=== PATIENT | female | born 1990 | race Caucasian/White ===

== ENCOUNTER 2021-07-24 10:46 | Outpatient (RCR) | payer OTHER, SELFPAY | END 2021-08-21 11:42 | disposition home or self-care (01) | LOC: ANHDMC 10:46 | PROVIDERS: Visit Provider Obstetrics & Gynecology | DX: O24.319 Unspecified pre-existing diabetes mellitus in pregnancy, unspecified trimester (principal); Z71.89 Other specified counseling; Z3A.00 Weeks of gestation of pregnancy not specified | CPT/HCPCS: 99199; G0108 ==

== ENCOUNTER 2021-07-25 06:37 | Emergency (ER) | payer OTHER, MEDICAID, SELFPAY ==
[2021-07-25 06:55] VITALS: BP 146/88; PULSE 98; RESP 16; TEMP 36.6; O2SAT 98
[2021-07-25 07:09] LABS: Glucose Point of Care 109 mg/dl (65-105)
[2021-07-25] MEDS: SODIUM CHLORIDE 0.9% IV 1,000 ML 999 ML IV CONT (08:08)
[2021-07-25 08:13] LABS: Basophils Percent Auto 0.4 % (0.2-1.2); Eosinophils Absolute Auto 0.1 K/mm3 (0-0.3); Eosinophils Percent Auto 1.4 % (0-4.4); Hematocrit 35.5 % (37.0-47.0); Hemoglobin 12.1 g/dL (12.0-15.0); Immature Granulocyte Absolute 0.06 K/mm3 (0.00-0.031); Immature Granulocyte Percent A 0.6 % (0-0.5); Lymphocytes Absolute Auto 1.56 K/mm3 (0.9-3.2); Lymphocytes Percent Auto 15.6 % (18.3-44.2); Mean Corpuscular HGB Conc 34.1 g/dl (32-36); Mean Corpuscular Hemoglobin 29.5 pg (26-34); Mean Corpuscular Volume 86.6 fl (80-100); Mean Platelet Volume 9.6 fl (7.4-10.4); Monocytes Absolute Auto 0.6 K/mm3 (0.1-0.6); Monocytes Percent Auto 6.3 % (2.6-8.5); Neutrophils Absolute Auto 7.6 K/mm3 (1.3-6.7); Neutrophils Percent Auto 75.7 % (45.5-73.1); Platelet Count Result 219 k/mm3 (150-375); Red Cell Distribution Width 14.9 % (11.5-14.5)
[2021-07-25 08:31] LABS: Beta-Hydroxybutyrate/Acetoacetate 0.09 mmol/L (0.02-0.27)
[2021-07-25 08:37] LABS: Alanine Aminotransferase 24 U/L (4-35); Albumin Level 3.5 g/dL (3.5-5.1); Alkaline Phosphatase 87 U/L (38-126); Anion Gap 8 mmol/L (8-16); Aspartate Amino Transferase 28 U/L (14-36); Bilirubin,Total 0.3 mg/dL (0.2-1.3); Blood Urea Nitrogen 7 mg/dL (7-17); Calcium 8.9 mg/dL (8.4-10.2); Carbon Dioxide 20 mmol/L (22-30); Chloride 106 mmol/L (98-107); Estimated CRCL calculation 192 ml/min; Estimated Glomerular Filt Rate > 60; Glucose 98 mg/dL (65-110); Magnesium 1.9 mg/dL (1.6-2.3); Phosphorus 3.6 mg/dL (2.5-4.5); Potassium 3.4 mmol/L (3.4-5.0); Sodium 134 mmol/L (137-145)
[2021-07-25 08:39] VITALS: BP 101/61; PULSE 86; RESP 12; O2SAT 98
[2021-07-25 08:54] LABS: Add Urine Microscopic? YES; Appearance Urine Cloudy (Clear); Bacteria Urine Trace /hpf; Bilirubin Urine Negative (Negative); Blood Urine Negative (Negative); Color Urine Yellow (Yellow); Glucose Urine UA 3+ mg/dL (Negative); Ketones Urine Negative (Negative); Leukocyte Esterase Ur 2+ LEU/UL (Negative); Mucus Urine Rare /lpf; Nitrate Urine Negative (Negative); Protein Urine Negative (Negative); Squamous Epithelial Cell Urine Many /hpf (Few); Urobilinogen Urine Negative mg/dL (<2.0); WBC Urine 16-20 /hpf
--- NOTE | 2021-07-25 09:43 | ED.RECABL ---
HPI - Recheck/Abnormal Lab/Rx General Chief Complaint: Recheck/Abnormal Lab/Rx Stated Complaint: 31 weeks preg, high blood sugar Time Seen by Provider: 07/25/21 08:45 Source: patient History of Present Illness HPI narrative: Patient presents with elevated blood sugars. Patient reports she was recently diagnosed with gestational diabetes. She took her blood sugar this morning is in the 120s she ate breakfast and 45 minutes later she rechecked her blood sugar and it was 250 she called her OB clinic and was referred to the ER for evaluation. She has been peeing more frequently but otherwise feels well she is just concerned about the fluctuations in her blood sugar and was not sure what to do. Related Data Allergies Allergy/AdvReac Type Severity Reaction Status Date / Time No Known Allergies Allergy Verified 07/25/21 07:03 Review of Systems Review of Systems: CONSTITUTIONAL: Denies fever, chills, or sweats. EYES: Denies visual changes, redness, or discharge. ENT: Denies rhinorrhea, congestion, sore throat, or otalgia. CARDIOVASCULAR: Denies chest pain, palpitations, or edema. RESPIRATORY: Denies cough or dyspnea. GASTROINTESTINAL: Denies abdominal pain, nausea, vomiting, or diarrhea. GENITOURINARY: Denies dysuria or hematuria. SKIN: Denies rash or itching. MUSCULOSKELETAL: Denies back pain, joint pain, or myalgia. NEUROLOGIC: Denies headache, numbness, dizziness, or weakness. PSYCHIATRIC: Denies anxiety or depression. All systems reviewed & are unremarkable except as noted in HPI and below PMFSH Past Medical History Medical History (Updated 07/25/21 @ 09:51 by Darrius Nair MD) Gestational diabetes Social History Social History (Updated 07/25/21 @ 09:45 by Darrius Nair MD) Substance use: never Exam Narrative: GENERAL: Well-appearing, well-nourished, and in no acute distress. HEAD: Normocephalic, atraumatic. EYES: PERRLA and EOMI. ENT: Nares clear, no rhinorrhea or epistaxis. Mucous membranes moist. NECK: Supple. No masses. No JVD ABDOMEN: Gravid abdomen soft, nontender, nondistended, normal active bowel sounds. EXTREMITIES: Normal range of motion. No edema. SKIN: Warm, dry, no rash. NEURO: No focal deficits. Alert and oriented x3. PSYCH: Normal mood and affect. Course Reevaluation(s) Reevaluation #1: Patient resting comfortably results and plan reviewed with patient. Patient comfortable outpatient plan. Case discussed with patient's OB team who will follow up with the patient as an outpatient. Date: 07/25/21 Time: 09:48 Vital Signs Vital signs: Vital Signs Temperature 36.6 C 07/25/21 06:55 Pulse Rate 98 07/25/21 06:55 Respiratory Rate 16 07/25/21 06:55 Blood Pressure 146/88 H 07/25/21 06:55 Pulse Oximetry 98 07/25/21 06:55 Temperature 36.6 C 07/25/21 06:55 Pulse Rate 94 07/25/21 10:15 Respiratory Rate 12 07/25/21 10:15 Blood Pressure 111/67 07/25/21 10:15 Pulse Oximetry 97 07/25/21 10:15 MDM - Recheck/Abnormal Lab/Rx MDM Narrative Medical decision making narrative: H&P as above, vss, pt looks clinically well, exam reassuring, labs with UA concerning for infection, glucose corrected without intervention,additional labs/img considered, symptomatic relief available as needed, on reevaluation pt continues to looks clinically well. Suspect diabetes no DKA. Patient also may be developing a UTI will empirically treat with antibiotics, again low, concern for DKA, severe sepsis, severe dehydration. plan to tx/monitor as op w/ pcm f/u findings/plan discussed with pt, pt agree/comfortable with plan, return precautions given Lab Data Result diagrams: 07/25/21 08:02 07/25/21 08:02 Labs: Lab Results 07/25/21 07/25/21 07/25/21 Range/Units 07:05 08:02 08:02 WBC 10.0 (4.5-10.0) K/mm3 RBC 4.10 L (4.2-5.4) M/mm3 Hgb 12.1 (12.0-15.0) g/dL Hct 35.5 L (37.0-47.0) % MCV 86.6 (80-100) fl MCH 29.5 (26-34) pg MCHC
[2021-07-25 10:15] VITALS: BP 111/67; PULSE 94; RESP 12; O2SAT 97
== END 2021-07-25 10:20 | disposition home or self-care (01) ==
PROVIDERS: Emergency Provider Emergency Medicine; PCP Internal Medicine
DX: O24.419 Gestational diabetes mellitus in pregnancy, unspecified control (principal); O23.43 Unspecified infection of urinary tract in pregnancy, third trimester; N39.0 Urinary tract infection, site not specified; Z3A.31 31 weeks gestation of pregnancy
CPT/HCPCS: 36415; 80053; 81001; 82010; 82948; 83735; 84100; 85025; 87086; 87088; 96360; 99283; J7030

== ENCOUNTER 2021-09-10 08:51 | Outpatient (RCR) | payer OTHER, MEDICAID, SELFPAY ==
[2021-08-07 10:30] VITALS: BP 117/63; PULSE 91
[2021-08-11 16:23] VITALS: BP 105/65; PULSE 96
[2021-08-22 15:05] VITALS: BP 115/50; PULSE 81
[2021-08-28 09:30] VITALS: BP 119/69; PULSE 88
[2021-08-31 12:53] VITALS: BP 123/77; PULSE 85
[2021-09-07 12:51] VITALS: BP 110/73; PULSE 90
[2021-09-10 09:23] VITALS: BP 109/80; PULSE 79
== END 2021-09-21 21:04 | disposition home or self-care (01) ==
LOC: ANHOBOP 08:51
PROVIDERS: PCP Internal Medicine; Visit Provider Obstetrics & Gynecology
DX: O24.419 Gestational diabetes mellitus in pregnancy, unspecified control (principal); Z3A.32 32 weeks gestation of pregnancy; O99.891 Other specified diseases and conditions complicating pregnancy; X00.8XXA Other exposure to uncontrolled fire in building or structure, initial encounter; Z3A.33 33 weeks gestation of pregnancy; Z3A.34 34 weeks gestation of pregnancy; Z3A.35 35 weeks gestation of pregnancy; Z3A.36 36 weeks gestation of pregnancy; Z3A.37 37 weeks gestation of pregnancy
CPT/HCPCS: 59025

== ENCOUNTER 2021-09-11 22:30 | Inpatient (IN) | payer OTHER, MEDICAID, SELFPAY ==
[2021-09-11 07:00] VITALS: TEMP 37.1
[2021-09-12] VITALS (105 sets, daily range): BP systolic 86–139; BP diastolic 32–120; PULSE 63–104; RESP 18; TEMP 36.1–37; O2SAT 96–100; BMI 42.3
[2021-09-12 00:16] LABS: Basophils Absolute Auto 0.1 K/mm3 (0.0-0.1); Basophils Percent Auto 0.5 % (0.2-1.2); Eosinophils Absolute Auto 0.2 K/mm3 (0-0.3); Eosinophils Percent Auto 1.5 % (0-4.4); Hematocrit 39.6 % (37.0-47.0); Hemoglobin 13.5 g/dL (12.0-15.0); Immature Granulocyte Absolute 0.05 K/mm3 (0.00-0.031); Immature Granulocyte Percent A 0.5 % (0-0.5); Lymphocytes Absolute Auto 2.17 K/mm3 (0.9-3.2); Lymphocytes Percent Auto 20.6 % (18.3-44.2); Mean Corpuscular HGB Conc 34.1 g/dl (32-36); Mean Corpuscular Hemoglobin 29.5 pg (26-34); Mean Corpuscular Volume 86.7 fl (80-100); Mean Platelet Volume 10.3 fl (7.4-10.4); Monocytes Absolute Auto 0.7 K/mm3 (0.1-0.6); Monocytes Percent Auto 6.6 % (2.6-8.5); Neutrophils Absolute Auto 7.4 K/mm3 (1.3-6.7); Neutrophils Percent Auto 70.3 % (45.5-73.1); Platelet Count Result 213 k/mm3 (150-375); Red Blood Count 4.57 M/mm3 (4.2-5.4); Red Cell Distribution Width 14.7 % (11.5-14.5); White Blood Count 10.5 K/mm3 (4.5-10.0)
[2021-09-12] MEDS: AMPICILLIN 2 GM/NS 100 ML 2 GM/100 ML BAG IVPB (00:17)
[2021-09-12] MEDS: LACTATED RINGERS 1,000 ML 125 ML IV CONT ×2 (00:17→01:32)
[2021-09-12 00:23] LABS: Glucose Point of Care 119 mg/dl (65-105)
--- NOTE | 2021-09-12 00:26 | WPDANESEPPF ---
Anes - Initial Pre Proc Eval Procedure: labor epidural Date/Time: 09/12/21 00:26 Surgeon: Adiel Velez MD Pre Op Diagnosis: labor pain Pre Op Diagnosis: Leaking Patient Data Age: 31 Gender: F Height: Weight: Allergies Allergy/AdvReac Type Severity Reaction Status Date / Time No Known Allergies Allergy Verified 07/25/21 07:03 Home Medications Medication Instructions Recorded Confirmed Type PNV cmb#95-ferrous fumarate-FA 1 tablet PO DAILY 08/29/21 08/29/21 History [] Laboratory Tests 09/12/21 09/12/21 09/12/21 00:03 00:03 00:03 WBC 10.5 K/mm3 H K/mm3 (4.5-10.0) RBC 4.57 M/mm3 M/mm3 (4.2-5.4) Hgb 13.5 g/dL g/dL (12.0-15.0) Hct 39.6 % % (37.0-47.0) MCV 86.7 fl fl (80-100) MCH 29.5 pg pg (26-34) MCHC 34.1 g/dl g/dl (32-36) RDW 14.7 % H % (11.5-14.5) Plt Count 213 k/mm3 k/mm3 (150-375) MPV 10.3 fl fl (7.4-10.4) Immature Gran % (Auto) 0.5 % % (0-0.5) Neut % (Auto) 70.3 % % (45.5-73.1) Lymph % (Auto) 20.6 % % (18.3-44.2) [place] % (Auto) 6.6 % % (2.6-8.5) Eos % (Auto) 1.5 % % (0-4.4) Baso % (Auto) 0.5 % % (0.2-1.2) Lymph # (Auto) 2.17 K/mm3 K/mm3 (0.9-3.2) [place] # (Auto) 0.7 K/mm3 H K/mm3 (0.1-0.6) Eos # (Auto) 0.2 K/mm3 K/mm3 (0-0.3) Baso # (Auto) 0.1 K/mm3 K/mm3 (0.0-0.1) Abs Immat Gran (auto) 0.05 K/mm3 H K/mm3 (0.00-0.031) Absolute Neuts (auto) 7.4 K/mm3 H K/mm3 (1.3-6.7) Absolute Nucleated RBC 0.0 K/mm3 K/mm3 (0.0-0.012) Nucleated RBC % 0.0 % % (0.0-0.2) POC Capillary Glucose RPR Pending HIV 1&2 Ab/P24 Ag 4thGn Pending 09/12/21 00:10 WBC RBC Hgb Hct MCV MCH MCHC RDW Plt Count MPV Immature Gran % (Auto) Neut % (Auto) Lymph % (Auto) [place] % (Auto) Eos % (Auto) Baso % (Auto) Lymph # (Auto) [place] # (Auto) Eos # (Auto) Baso # (Auto) Abs Immat Gran (auto) Absolute Neuts (auto) Absolute Nucleated RBC Nucleated RBC % POC Capillary Glucose 119 mg/dl H mg/dl (65-105) RPR HIV 1&2 Ab/P24 Ag 4thGn Patient hx anesthesia problems: none Family hx anesthesia problems: none Results Review: All pre-operative results and documents have been reviewed as part of the pre-operative evaluation. 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 Informed Consent: The patient's anesthetic plan and its attendant risks and benefits were discussed with the patient/family/POA. Questions were solicited and answers provided to the satisfaction of the patient/family/POA.
[2021-09-12 01:04] LABS: HIV 1/2 Ab P24 Ag Result Negative (Negative)
[2021-09-12] MEDS: OXYTOCIN 30 UNITS/NS 500 ML 30 UNITS/500 ML BAG IV CONT (02:14)
[2021-09-12] MEDS: AMPICILLIN 1 GM/NS 50 ML 1 GM/50 ML BAG IVPB (04:04)
[2021-09-12 04:12] LABS: Glucose Point of Care 91 mg/dl (65-105)
--- NOTE | 2021-09-12 05:48 | WPDHPUPDATE1 ---
History and Physical Update Update Date/Time: 09/12/21 05:48 31 yo who presents at 37w5d with SROM. Her has been complicated by gestational diabetes on insulin. She denies any vaginal bleeding. She endorses good movement. History and Physical has been reviewed, including an updated exam of the patient. There are NO changes in the patient's condition. Risks, benefits, and alternatives have been discussed and questions answered. Patient agrees to proceed with procedure. A/P: admit to L&D routine admission orders monitor BS, will administer insulin or D5LR as needed pitocin augmentation Rh+ GBS pos, will start abx FHT cat 1 continuous EFM
--- NOTE | 2021-09-12 05:49 | PM.OBPRVD ---
OB - Delivery Note Procedure Procedure: Patient pushed for a spontaneous vaginal delivery. The fetus was delivered atraumatically and placed on the maternal abdomen. The cord was clamped and cut after 1 minute of life. The cord was double clamped and cut and a segment of cord was collected for cord gases. Cord blood was collected for blood type and Coomb's testing. Gentle traction was placed on the umbilical and fundal massage was applied. The uterus was firm. The placenta was not delivering spontaneously. During fundal massage, the umbilical cord evulsed. Bedside US was performed and showed the remainder of the placenta at the uterine fundus. Manual extraction was attempted without success. The umbical cord was regrasped with a ring forcep. Gentle traction was placed. Bedside Banjo curettage was performed under direct US guidance. The placenta was then delivered with curettage and gentle traction on the umbilical cord. The pt received one 2 g dose of ancef. The perineum was inspected and there was a small 1st degree laceration was that repaired with 3-0 vicryl. The uterus was firm and good hemostasis was noted. The patient and fetus were stable in the delivery room. events: Gestational Diabetes Intrapartal events: None Induction method: none Delivery augmentation: pitocin Delivery monitor: external FHT Route of delivery: Episiotomy description: None Laceration Description: Perineal - 1st Degree Delivery repair: vicryl Specimen: No Quantitative Blood Loss (ml): 500 Anesthesia type: Epidural Disposition: floor () Complications: retained placenta Baby Date of : 09/12/[birth year] Time of : 05:02 Weeks of gestation at delivery: 37 Infant gender: Male Weight (pounds): 7 Weight (ounces): 7 presentation: vertex position: Right Occiput Anterior Placenta delivery description: Manual Removal and Curettage cord vessel description: 3 Vessels score one minute: 8 score five minutes: 9
[2021-09-12] MEDS: ceFAZolin 2 GM/D5W 50 ML 2 GM/50 ML BAG IVPB (05:50)
[2021-09-12] MEDS: OXYTOCIN 30 UNITS/NS 500 ML 30 UNITS/500 ML BAG 125 UNITS IV CONT (05:52)
--- NOTE | 2021-09-12 07:43 | PC.NURSE ---
No blood pressure or pulse taken between 0645 to 0711 due to patient and BP cuff not working.
--- NOTE | 2021-09-12 07:44 | PC.NURSE ---
0727 Brandon Mata RN to the room to remove epidural catheter.
[2021-09-12] MEDS: WITCH HAZEL 40 PADS 1 PAD TOPICAL (08:58)
[2021-09-12] MEDS: BENZOCAINE 20% AER SPR (*SP) 56 GM CAN 1 SPRAY TOPICAL (08:58)
[2021-09-12] MEDS: IBUPROFEN 600 MG TABLET PO ×2 (08:58→18:20)
[2021-09-12] MEDS: LANOLIN (LANSINOH) 7.5 GM CREAM 1 APPLIC TOPICAL (08:58)
--- NOTE | 2021-09-12 09:00 | PC.NURSE ---
Patient transferred to post room #290 per wheelchair. Support person present. Oriented to unit, room, information board, rooming in, admission packet and security measures. Patient verbalizes understanding.
--- NOTE | 2021-09-12 11:11 | PC.NURSE ---
0931 - Introductions were made and RN observed the primary RN assisting mom with baby with a nipple shield. Mother led the discussion of her desires to feed her baby. Mom's plan is to pump and doesn't desire to attempt to breast without a nipple shield. Mom has had breast implants for tuberous breast at age 20 and did not have success her first . Reviewed information regarding pump care, hand washing, nipple care and pumping 8 times in 24 hours (1-2 at night) for 10-15 minutes. Discussed she may want to pump after feedings or between feedings. Mom desires pumping between feedings. If after feeding, rest for 5-10 minutes. Get something to eat/drink, use the restroom, then pump. Mom has concerns about being able to pump at work and we discussed laws. Collection and storage of breastmilk per mom and baby guide. Mom states she harvested colostrum while she was (about 1ml) and no colostrum was expressed with demonstrating teaching of hand expression. Encouraged mom to place infant skin to skin, breast massage, nipple stroking, nipple stretching and use hand expression and/or a breast pump in a relaxing atmosphere. Mother verbalizes the understanding of the importance of handwashing to prevent infection before and after taking care of her baby. Discussed how to watch for early feeding cues, place skin to skin, then feeding baby when infant is ready or every 2-3 hours. Reviewed positioning/alignment with the use of demonstration and mom and baby guide. Encouraged mother with infant to the left breast football position using nipple shield applied well to the breast to nose with asymmetrical 140-degree latch. She denies any nipple discomfort. Reviewed there is to be no pain with , how to detach from the breast, visuals to watch for to confirm effective with a nipple shield. Reviewed effective latching with resources tool/handout/mom and baby guide. Use of warm, wet compress to nipples and air dry for improved comfort if needed. was able to maintain effective latch with nipple shield. Mother has verbalized understanding watching for feeding cues for responsive feeding, how to stimulate to initiate from the start of the last feeding and the importance of pumping for milk production. Mother voiced understanding to feed infant when she sees feeding cues, 8-12 times in 24 hours approximately every 2-3 hours from the start of the last feeding or she has discomfort with nursing. Mom will call when she is ready to initiate pumping. Reported to primary RN.
[2021-09-12 12:12] LABS: Rapid Plasma Reagin Non-Reactive (NonReactive)
--- NOTE | 2021-09-12 15:17 | PCCCNOTE ---
Met with pt. due to CC consult: No support system. Pt. states no parents or siblings live in the area, nor are involved. Pt. states she has a small group of supportive friends, but they have their own children and lives are typically busy. Pt. was given a baby basket with baby supplies. Pt. reports at discharge, will return home in [place], [place] with her 9 year old son and her . Pt. states her 's FOB is not involved and she has joint custody with her 9 year old son's father. Pt. reports her friend Marleni is watching her 9 year old currently. Pt. reports having all necessary baby supplies. 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 Pt. reports no open cases with DCFS; pt. states last case was in 2014 and has since been closed. Pt. denies drug use during . resources provided. KIMBERLY mathews.
--- NOTE | 2021-09-12 15:50 | PC.NURSE ---
1200 - Breast pump provided due to ineffective feeding with a nipple shield. Mom does not desire to attempt baby to the breast without a nipple shield. Reviewed information regarding pump care, hand washing, nipple care and pumping 8 times in 24 hours (1-2 at night) for 10-15 minutes. Discussed she may want to pump after feedings or between feedings. If after feeding, rest for 5-10 minutes. Get something to eat/drink, use the restroom, then pump. Collection and storage of breast milk per mom and baby guide. Encouraged mom to place infant skin to skin, breast massage and use hand expression and/or a breast pump in a relaxing atmosphere. Reviewed recording pumping schedule on the feeding sheet or pumping log. Mom pumped 0.8 ml of human milk and RN fed it to using a syringe while mom ate lunch. Referred to the visual handout along with the mom and baby guide as a resource and when to call a provider. Reported to primary RN.
[2021-09-12] MEDS: DOCUSATE SODIUM 100 MG CAPSULE PO (18:23)
[2021-09-13] MEDS: IBUPROFEN 600 MG TABLET PO ×4 (03:26→23:46)
[2021-09-13 03:34] VITALS: BP 123/72; PULSE 82; RESP 18; TEMP 36.2; O2SAT 100
[2021-09-13 04:00] VITALS: BP 123/72; PULSE 82; RESP 18; TEMP 36.2; O2SAT 100
[2021-09-13 05:43] LABS: Hematocrit 37.7 % (37.0-47.0); Hemoglobin 12.9 g/dL (12.0-15.0)
[2021-09-13 08:00] VITALS: BP 134/78; PULSE 75; RESP 18; TEMP 36.4
--- NOTE | 2021-09-13 09:09 | PM.OBPNVD ---
OB - PN: Subj Subjective Date/time seen: 09/13/21 09:09 Narrative: Pain OK. Would like circumcision for son. OB - PN: Obj Data Labs CBC & Chem 7: 09/13/21 03:11 Labs: Laboratory Results - last 24 hr 09/12/21 09/13/21 00:03 03:11 Hgb 12.9 Hct 37.7 RPR Non-reactive OB - PN A/P Plan Comments: A: PPD#1, doing well. P: Routine care. Reviewed circ. Exam Psych: Other: AVSS ABD soft, nontender, fundus firm EXT nontender
--- NOTE | 2021-09-13 09:34 | WPDANLDPN2 ---
Anes-Prog Note L&D Date/Time: 09/13/21 09:34 Comfortable throughout: labor and delivery Neuraxial method: epidural Epidural/Spinal procedure site: clean & non-tender Neuro status: Neuro function grossly intact. Cardiovascular status: normal Respiratory status: normal Airway patency: baseline Mental status: baseline Post-Op hydration status: normal Vital Signs: Last Vital Signs Temp 36.2 C L 09/13/21 04:00 Pulse 82 09/13/21 04:00 Resp 18 09/13/21 04:00 BP 123/72 09/13/21 04:00 Pulse Ox 100 09/13/21 04:00 Pain score (VAS): 4 Post-procedural complaints: none Patient feedback: Patient satisfied with anesthetic care.
[2021-09-13] MEDS: DOCUSATE SODIUM 100 MG CAPSULE PO ×2 (10:57→18:24)
[2021-09-13] MEDS: MULTIVIT/MIN/PREN/FOL AC/IRON TABLET 1 TAB PO (10:57)
--- NOTE | 2021-09-13 14:01 | PC.NURSE ---
1115 - Mother led the discussion of her desires to feeding her baby and her concerns of latching, milk supply, jaundice and the possible need for supplementing. Reinforced stimulation to the breast with pumping 8 times in 24 hours with 1-2 pumps at night time, milk production, collection and storage. Mom states she is using her pump from home when she pumps and is feeding the 2 ml of formula from a syringe and states infant is not interested as baby is swaddled sleeping. RN reinforced unwrapping, undressing and stimulating to wake and eat and using hospital pump for stimulation. Discussed the jaundice levels rising and reinforced the need for infant to eat. Mother verbalizes she is unable to independently latch . Discussed how to watch for early feeding cues, place skin to skin, then feeding baby when infant is ready or every 2-3 hours. Mom doesn't desire to place to breast without the nipple shield. Mother voiced understanding to feed infant when she sees feeding cues, 8-12 times in 24 hours approximately every 2-3 hours from the start of the last feeding or she has discomfort with nursing. Mom voiced understanding to call for assistance with latching her if that is how she wants to feed her baby. Reported to primary RN.
[2021-09-13] MEDS: BENZOCAINE 20% AER SPR (*SP) 56 GM CAN 1 SPRAY TOPICAL (18:23)
[2021-09-13] MEDS: WITCH HAZEL 40 PADS 1 PAD TOPICAL (18:23)
[2021-09-13 19:00] VITALS: BP 131/84; PULSE 65; RESP 18; TEMP 36.9
[2021-09-13] MEDS: ACETAMINOPHEN 325 MG TABLET 650 MG PO (23:47)
--- NOTE | 2021-09-14 08:31 | PM.OBPNVD ---
OB - PN: Subj Subjective Date/time seen: 09/14/21 08:31 Narrative: Pain OK. Would like to go home. OB - PN: Obj Data Labs CBC & Chem 7: 09/13/21 03:11 OB - PN A/P Plan Comments: A: PPD#2, doing well. P: Home to f/u 6 weeks. Exam Psych: Other: AVSS ABD soft, nontender, fundus firm EXT nontender
--- NOTE | 2021-09-14 08:35 | PM.OBPNVD ---
OB - PN: Subj Subjective Date/time seen: 09/14/21 08:35 Narrative: Pain OK. Would like to go home. OB - PN: Obj Data Labs CBC & Chem 7: 09/13/21 03:11 OB - PN A/P Plan Comments: A: PPD#2, doing well. P: Home to f/u 6 weeks. Exam Psych: Other: AVSS ABD soft, nontender, fundus firm EXT nontender
--- NOTE | 2021-09-14 08:35 | PM.OBDSVD ---
DS: Admitting Diagnosis Discharge Date 09/14/21 Admitting Diagnosis IUP at term Labor Gestational diabetes DS: Discharge Diagnosis Discharge Diagnosis (1) Gestational diabetes: Code(s): O24.419 - Gestational diabetes mellitus in , unspecified control Status: Acute (2) (normal spontaneous vaginal delivery): Code(s): O80 - Encounter for full-term uncomplicated delivery Status: Acute OB - DS: Summary OB Procedures : None OB Procedures Intrapartum: Spontaneous Vag Delivery OB Procedures: : None DS: Data Data Completed and Pending Pending studies at discharge: Pending at discharge 09/12/21 05:40 Surgical [PTH] Routine Discharge Plan Discharge Attending physician on discharge: Adiel Velez Discharging Clinician: Adiel Velez Patient Disposition: Home, Self-Care Activity: pelvic rest Diet: regular Discharge Instructions: Call or return if temperature above 100.4? F, increased abdominal pain, increased vaginal bleeding or any new problems. Stand Alone Forms: General Discharge Information Follow-up/Referrals: Adiel Velez MD [Physician] - 6 Weeks Discharge Medications: New ibuprofen 600 mg tablet 600 mg PO Q6H PRN (Reason: cramps) Qty: 30 RF: 0 Continued PNV cmb#95-ferrous fumarate-FA [] 28 mg iron- 800 mcg Tablet 1 tablet PO DAILY RF: 0 Date of admission: 09/11/21 22:30 Primary Care Provider: SlickJessa Admitting Provider: Adiel Velez Attending physician on admission: Adiel Velez Condition: Stable
[2021-09-14 08:40] VITALS: BP 121/70; PULSE 58; RESP 18; TEMP 36.6; O2SAT 98
--- NOTE | 2021-09-14 11:41 | PC.NURSE ---
0955 - Mother led the conversation with regards to her experience and plan for feeding her baby. Mom wants to breastfeed infant with a nipple shield without putting baby to breast not using the nipple shield. 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 Reminded mother to use good handwashing to prevent infection. has had adequate feedings in the past 24 hours and meets the outcomes for weight, output and jaundice. Mother states she feels confident to continue pumping/supplementing her infant at home. Reviewed production of human milk, transition of milk, signs of adequate intake and engorgement prevention/relief and when to call the care provider using the mom and baby guide to reinforce teaching. Mom has pumped some colostrum but states baby had 40 mls of formula last night. Handout [IBCLC] and verbal teaching to mom regarding milk supply and maintenance. Reviewed medications mother is taking with information provided by [facility] as needed, community resources and outpatient services as listed in the mom and baby guide/[facility] website. Reinforced watching for feeding cues with responsive feeding and how to stimulate to initiate feeding three hours from the start of the last feeding. Mother voiced understanding of information shared. Reported to primary RN.
[2021-09-14] MEDS: MULTIVIT/MIN/PREN/FOL AC/IRON TABLET 1 TAB PO (13:03)
[2021-09-14] MEDS: IBUPROFEN 600 MG TABLET PO (13:03)
[2021-09-14] MEDS: ACETAMINOPHEN 325 MG TABLET 650 MG PO (13:03)
[2021-09-14] MEDS: TETANUS,DIPHTHERIA,AC PERTUSSIS ADULT (0.5 ML) BOOSTRIX IM (13:04)
[2021-09-17 11:52] VITALS: BP 135/83; PULSE 69; RESP 20; TEMP 36.9; O2SAT 100
== END 2021-09-14 15:10 | disposition home or self-care (01) | DRG 807 ==
LOC: ANHLDR 23:22 → ANHOB2 09-12 09:22
PROVIDERS: Admitting Provider Student in an Organized Health Care Education/Training Program; PCP Internal Medicine; Visit Provider Obstetrics & Gynecology
DX: O24.424 Gestational diabetes mellitus in childbirth, insulin controlled (principal); Z37.0 Single live birth; O70.0 First degree perineal laceration during delivery; O73.1 Retained portions of placenta and membranes, without hemorrhage; O99.824 Streptococcus B carrier state complicating childbirth; Z3A.37 37 weeks gestation of pregnancy
CPT/HCPCS: 36415; 82948; 85014; 85018; 85025; 86592; 86703; 86850; 86900; 86901; 88307; 90715; A9270; G0432; J0290; J0690; J2590; J2795; J7120

== ENCOUNTER 2023-02-04 21:47 | Emergency (ER) | payer OTHER, MEDICAID, SELFPAY ==
--- NOTE | ~2023-02-04 | US_ITS ---
Pelvic ultrasound. Clinical History: Left lower quadrant pain Technique: Realtime transabdominal scanning of the pelvis was performed. Color flow Doppler and Doppl er spectral analysis were performed. Findings: The uterus is anteverted. The endometrial stripe has a thickness of 3 mm. No focal mass is identified. The right ovary measures 1.7 x 2.4 x 1.6 cm. No significant right ovarian or adnexal mass is seen. The left ovary measures 2.5 x 3.1 x 1.4 cm. No significant left ovarian or adnexal mass is seen. Vascular flow present in both ovaries on Doppler spectral analysis. There is no evidence of free fluid in the cul de sac. Impression: Unremarkable pelvic ultrasound. Reviewed, dictated and finalized at location . Impression: Unremarkable pelvic ultrasound.
--- NOTE | ~2023-02-04 | CT_ITS ---
CT of the Abdomen and Pelvis: Indication: Abdominal pain Technique: 2.5 mm axial scans were obtained through the abdomen and pelvis following intravenous adm inistration of 100 cc of Omnipaque 350. Dose reduction technique was used on this scan by utilizing a utomated exposure control and iterative reconstruction technique. The dose-length product (DLP) was 7 67.87 mGy-cm. Findings: Scans through the lung bases are unremarkable. The liver, spleen, pancreas, adrenals and left kidney are within normal limits. Multiple small calcif ied gallstones are present. Several small nonobstructing right renal stones are present. No evidence of aortic aneurysm. No lymphadenopathy. No bowel obstruction or bowel wall thickening. There is no evidence to suggest acute appendicitis. Images through the pelvis were performed. Urinary bladder unremarkable. No adnexal mass seen. No asci nia. Impression: Cholelithiasis. Several small nonobstructing right renal stones. Reviewed, dictated and finalized at [facility]. Impression: Cholelithiasis. Several small nonobstructing right renal stones.
[2023-02-04 21:51] VITALS: BP 135/91; PULSE 65; RESP 17; TEMP 35.6; O2SAT 98
--- NOTE | 2023-02-04 22:03 | ED.ABDPAIN ---
HPI - Abdominal Pain General Chief Complaint: Abdominal Pain Stated Complaint: abd pain/vomiting Time Seen by Provider: 02/04/23 22:03 Source: patient Mode of arrival: ambulatory Limitations: no limitations History of Present Illness HPI narrative: Patient is a 32-year-old female presenting to the emergency department for evaluation of abdominal pain. Patient reports lower abdominal pain and pain in the left lower quadrant that has been ongoing over the past 5 days. Pain is cramping, aching in nature, began in the left lower quadrant now throughout her entire abdomen. Patient reports inability to tolerate oral intake secondary to vomiting. She reports nonbloody, nonbilious emesis. She denies fever, chills. She reports watery diarrhea without blood or mucus. She reports urinary frequency. She denies dysuria. She denies flank pain. Patient denies any abdominal distention. No recent sick contacts. Patient denies history of abdominal surgery. Patient states that she was seen at [facility] in [place] today with reassuring lab work and imaging and ultimately discharged home. Related Data Home Medications Medication Instructions Recorded Confirmed vit no.95-ferrous 1 tablet PO DAILY 08/29/21 08/29/21 fumarate 28 mg-folic acid 800 mcg tablet () Allergies Allergy/AdvReac Type Severity Reaction Status Date / Time No Known Allergies Allergy Verified 07/25/21 07:03 Review of Systems Review of Systems: CONSTITUTIONAL: Denies fever, chills, or sweats. EYES: Denies visual changes, redness, or discharge. ENT: Denies rhinorrhea, congestion, sore throat, or otalgia. CARDIOVASCULAR: Denies chest pain, palpitations, or edema. RESPIRATORY: Denies cough or dyspnea. GASTROINTESTINAL: Reports abdominal pain, nausea, vomiting and diarrhea GENITOURINARY: Denies dysuria or hematuria. SKIN: Denies rash or itching. MUSCULOSKELETAL: Denies back pain, joint pain, or myalgia. NEUROLOGIC: Denies headache, numbness, or weakness. [facility] Past Medical History Medical History (Updated 02/05/23 @ 02:51 by Jaylin Wadsworth MD) Acoustic neuroma Gestational diabetes Family History Family History (Updated 08/29/21 @ 13:54 by Brent Walker RN) Other No pertinent family history Social History Social History (Updated 07/25/21 @ 09:45 by Darrius Nair, ) Smoking status: Never smoker Second hand tobacco smoke exposure: No Substance use: never Spiritual care concerns: No Course Vital Signs Vital signs: Vital Signs Temperature 35.6 C L 02/04/23 21:51 Pulse Rate 65 02/04/23 21:51 Respiratory Rate 17 02/04/23 21:51 Blood Pressure 135/91 H 02/04/23 21:51 Pulse Oximetry 98 02/04/23 21:51 Oxygen Delivery Room Air 02/04/23 21:51 Temperature 35.6 C L 02/04/23 21:51 Pulse Rate 58 L 02/05/23 00:20 Respiratory Rate 13 02/05/23 00:20 Blood Pressure 102/72 02/05/23 00:20 Pulse Oximetry 99 02/05/23 00:20 Oxygen Delivery Room Air 02/04/23 21:51 MDM - Abdominal Pain MDM Narrative Medical decision making narrative: Patient presenting for evaluation of abdominal pain. Patient was seen previously at outside facility with reassuring work-up per patient. At the time of assessment, patient with left lower quadrant, left upper quadrant periumbilical abdominal pain. No CVA tenderness. Vital signs are stable. IV access obtained and labs are drawn. Patient was given IV fluids, antiemetic and pain medication. Laboratory results with mild leukocytosis with left predominance, neutrophil predominance, otherwise no acute kidney injury, electrolyte derangement, hyperbilirubinemia, transaminitis. Urinalysis not consistent with urinary tract infection. CT abdomen/pelvis without acute findings. Patient was reassessed, still endorsing left-sided abdominal pain. Patient requesting pelvic ultrasound to ensure no torsion. Explained the benign nature of the
[2023-02-04 22:27] LABS: Appearance Urine Clear (Clear); Bilirubin Urine Negative (Negative); Blood Urine Negative (Negative); Color Urine Yellow (Yellow); Glucose Urine UA Negative (Negative); Ketones Urine Negative (Negative); Leukocyte Esterase Ur Negative LEU/UL (Negative); Nitrate Urine Negative (Negative); Protein Urine Negative (Negative); Specific Grav Ur 1.025 (1.001-1.035); pH Urine 5.5 (5.0-9.0)
[2023-02-04 22:39] LABS: Add Urine Microscopic? NO
--- NOTE | 2023-02-04 22:45 | PC.NURSE ---
Chris HARRIS to attempt ultrasound IV.
[2023-02-04] MEDS: SODIUM CHLORIDE 0.9% IV 1,000 ML 999 ML IV CONT (23:11)
[2023-02-04] MEDS: DICYCLOMINE HCL INJ 20 MG/2 ML VIAL IM (23:12)
[2023-02-04] MEDS: PANTOPRAZOLE SODIUM IV 40 MG VIAL IV PUSH (23:12)
[2023-02-04] MEDS: MORPHINE SULFATE (*CRX) 4 MG/ML INJ IV PUSH (23:13)
[2023-02-04] MEDS: ONDANSETRON INJ 4 MG/2 ML VIAL IV PUSH (23:13)
[2023-02-04 23:20] LABS: Basophils Absolute Auto 0.1 K/mm3 (0.0-0.1); Basophils Percent Auto 0.7 % (0.2-1.2); Eosinophils Absolute Auto 0.2 K/mm3 (0-0.3); Eosinophils Percent Auto 1.8 % (0-4.4); Hematocrit 43.2 % (37.0-47.0); Hemoglobin 14.7 g/dL (12.0-15.0); Immature Granulocyte Absolute 0.03 K/mm3 (0.00-0.031); Immature Granulocyte Percent A 0.3 % (0-0.5); Lymphocytes Absolute Auto 2.13 K/mm3 (0.9-3.2); Lymphocytes Percent Auto 19.2 % (18.3-44.2); Mean Corpuscular Hemoglobin 29.5 pg (26-34); Mean Corpuscular Volume 86.6 fl (80-100); Mean Platelet Volume 9.9 fl (7.4-10.4); Monocytes Absolute Auto 0.5 K/mm3 (0.1-0.6); Monocytes Percent Auto 4.7 % (2.6-8.5); Neutrophils Absolute Auto 8.1 K/mm3 (1.3-6.7); Neutrophils Percent Auto 73.3 % (45.5-73.1); Platelet Count Result 281 k/mm3 (150-375); Red Blood Count 4.99 M/mm3 (4.2-5.4); Red Cell Distribution Width 12.7 % (11.5-14.5); White Blood Count 11.1 K/mm3 (4.5-10.0)
[2023-02-04 23:28] VITALS: BP 145/94; PULSE 61; RESP 13; O2SAT 98
[2023-02-04 23:31] LABS: Alanine Aminotransferase 23 U/L (6-35); Albumin Level 4.5 g/dL (3.5-5.1); Alkaline Phosphatase 80 U/L (38-126); Anion Gap 7 mmol/L (8-16); Aspartate Amino Transferase 24 U/L (14-36); Bilirubin,Total 0.4 mg/dL (0.2-1.3); Blood Urea Nitrogen 9 mg/dL (7-17); Carbon Dioxide 27 mmol/L (22-30); Chloride 106 mmol/L (98-107); Estimated CRCL calculation 108 ml/min; Estimated Glomerular Filt Rate > 60; Glucose 115 mg/dL (65-110); Lipase 63 U/L (23-300); Potassium 3.8 mmol/L (3.4-5.0); Sodium 140 mmol/L (137-145)
[2023-02-05 00:20] VITALS: BP 102/72; PULSE 58; RESP 13; O2SAT 99
[2023-02-05 02:57] VITALS: BP 118/65; PULSE 68; RESP 13; O2SAT 100
== END 2023-02-05 03:26 | disposition home or self-care (01) ==
PROVIDERS: Emergency Provider Emergency Medicine
DX: K52.9 Noninfective gastroenteritis and colitis, unspecified (principal); K80.20 Calculus of gallbladder without cholecystitis without obstruction
CPT/HCPCS: 36415; 74177; 76856; 80053; 81003; 81025; 83690; 85025; 96361; 96372; 96374; 96375; 99284; C9113; J0500; J2270; J2405; J7030; Q9967

== ENCOUNTER 2023-08-14 16:07 | Observation (INO) | payer OTHER, MEDICAID, SELFPAY ==
[2023-08-14 16:43] VITALS: BP 134/111; PULSE 97
[2023-08-14 16:46] VITALS: BP 116/79; PULSE 107
[2023-08-14 16:55] VITALS: BMI 38.1
[2023-08-14 17:00] VITALS: BP 121/81; PULSE 107
--- NOTE | 2023-08-14 17:00 | OBADM ---
This patient, Loulou Branch, admitted to the OB room OB Post 116 for observation. Patient/family oriented to hospital policies and general routines including ID bracelet, bed and alarms, visiting hours, pain management, procedures, bathroom and other care routines, personal items, smoking policy, room service/diet, and visiting hours. Patient/Family are encouraged to report perceived risks to care and to ask questions if they do not understand what they are told or what they should do.
[2023-08-14 17:04] LABS: Appearance Urine Clear (Clear); Bacteria Urine 1+ /hpf; Bilirubin Urine Negative (Negative); Blood Urine Negative (Negative); Color Urine Dark Yellow (Yellow); Glucose Urine UA Negative (Negative); Ketones Urine 1+ mg/dL (Negative); Leukocyte Esterase Ur Trace LEU/UL (Negative); Nitrate Urine Negative (Negative); Non Pathogenic Casts 0-2; Protein Urine Trace mg/dL (Negative); RBC Urine 0-2 /hpf (0-2); Specific Grav Ur 1.025 (1.001-1.035); Squamous Epithelial Cell Urine Occasional /hpf (Few); WBC Urine 0-5 /hpf; pH Urine 7.5 (5.0-9.0)
[2023-08-14 17:05] LABS: Add Urine Microscopic? YES
[2023-08-14] MEDS: LACTATED RINGERS 1,000 ML 999 ML IV CONT (17:49)
[2023-08-14] MEDS: PROMETHAZINE HCL 25 MG/ML AMPUL 12.5 MG IV PUSH (17:50)
--- NOTE | 2023-08-15 14:43 | PM.OBTRLD ---
OB - Triage/Final Diagnosis Visit Information Date of evaluation: 08/14/23 Reason for evaluation: threatened labor Comments/Additional reasons for admission: I have assessed the risk for this patient, Loulou Branch, and determined that she would benefit from observation care. Evaluation Laboratory results: Laboratory Tests 08/14/23 16:49 Urine Color Dark yellow Urine Appearance Clear Urine pH 7.5 Ur Specific [place] 1.025 Urine Protein Trace Urine Glucose (UA) Negative Urine Ketones 1+ H Ur Blood (Man) Negative Urine Nitrate Negative Urine Bilirubin Negative Urine Urobilinogen 1.0 Leukocyte Esterase Rfl Trace H Urine RBC 0-2 Urine WBC 0-5 Ur Squamous Epith Cells Occasional Urine Bacteria 1+ H Urine Casts 0-2 Vital signs: Vital Signs - 24 hr 08/14/23 16:43 08/14/23 16:46 08/14/23 17:00 Pulse Rate 97 107 H 107 H Blood Pressure 134/111 H 116/79 121/81 Oxygen Delivery 08/14/23 16:55 Pulse Rate Blood Pressure Oxygen Delivery Room Air
== END 2023-08-14 19:27 | disposition home or self-care (01) ==
PROVIDERS: Admitting Provider Obstetrics & Gynecology; Visit Provider Obstetrics & Gynecology
DX: O47.9 False labor, unspecified (principal); Z3A.20 20 weeks gestation of pregnancy
CPT/HCPCS: 81001; 96374; G0378; G0379; J2550; J7120

== ENCOUNTER 2023-09-20 20:20 | Outpatient (CLI) | payer OTHER, MEDICAID, SELFPAY ==
[2023-09-20 20:39] VITALS: BP 97/41; PULSE 107; RESP 17; TEMP 36.6
--- NOTE | 2023-09-20 21:15 | PC.NURSE ---
kick counts education reviewed with patient prior to patient leaving OB unit. Educational handout provided. Patient states understanding of kick counts education. Patient educated on labor precautions. Patient states understanding of all education and denies questions. Patient instructed to follow up as scheduled. Patient left OB unit ambulating without pain.
--- NOTE | 2023-09-20 21:20 | OBADM ---
This patient, Loulou Branch, admitted to the OB room OB Post 117 for observation. Patient/family oriented to hospital policies and general routines including ID bracelet, bed and alarms, visiting hours, pain management, procedures, bathroom and other care routines, personal items, smoking policy, room service/diet, and visiting hours. Patient/Family are encouraged to report perceived risks to care and to ask questions if they do not understand what they are told or what they should do.
== END 2023-09-20 21:15 | disposition home or self-care (01) ==
LOC: ANHOBOP 20:26 → ANHOBPP 20:28
PROVIDERS: Visit Provider Obstetrics & Gynecology
DX: O36.8190 Decreased fetal movements, unspecified trimester, not applicable or unspecified (principal); Z3A.00 Weeks of gestation of pregnancy not specified
CPT/HCPCS: 59025; 99199

== ENCOUNTER 2023-11-25 08:59 | Outpatient (CLI) | payer OTHER, MEDICAID, SELFPAY ==
[2023-11-25 09:25] VITALS: BP 110/59; PULSE 95
[2023-11-25 09:30] VITALS: BP 113/64; PULSE 97
[2023-11-25 09:42] LABS: Basophils Percent Auto 0.3 % (0.2-1.2); Eosinophils Absolute Auto 0.2 K/mm3 (0-0.3); Eosinophils Percent Auto 1.7 % (0-4.4); Hematocrit 37.1 % (37.0-47.0); Hemoglobin 12.6 g/dL (12.0-15.0); Immature Granulocyte Absolute 0.09 K/mm3 (0.00-0.031); Immature Granulocyte Percent A 0.8 % (0-0.5); Lymphocytes Absolute Auto 1.56 K/mm3 (0.9-3.2); Lymphocytes Percent Auto 13.9 % (18.3-44.2); Mean Corpuscular Hemoglobin 29.4 pg (26-34); Mean Corpuscular Volume 86.5 fl (80-100); Monocytes Absolute Auto 0.6 K/mm3 (0.1-0.6); Monocytes Percent Auto 5.3 % (2.6-8.5); Neutrophils Absolute Auto 8.8 K/mm3 (1.3-6.7); Platelet Count Result 199 k/mm3 (150-375); Red Blood Count 4.29 M/mm3 (4.2-5.4); Red Cell Distribution Width 16.2 % (11.5-14.5); White Blood Count 11.3 K/mm3 (4.5-10.0)
[2023-11-25 09:50] LABS: Appearance Urine Clear (Clear); Bacteria Urine None Seen /hpf; Bilirubin Urine Negative (Negative); Blood Urine Negative (Negative); Color Urine Yellow (Yellow); Glucose Urine UA Negative (Negative); Ketones Urine Negative (Negative); Leukocyte Esterase Ur Trace LEU/UL (Negative); Nitrate Urine Negative (Negative); Non Pathogenic Casts 0-2; Protein Urine Negative (Negative); RBC Urine 0-2 /hpf (0-2); Squamous Epithelial Cell Urine Occasional /hpf (Few); Urobilinogen Urine 0.2 mg/dL (<2.0); pH Urine 7.5 (5.0-9.0)
[2023-11-25 09:53] LABS: Creatinine Urine 74.1 mg/dL; Total Protein Urine Random 17 mg/dL; Ur Ttl Prot Creatinine Ratio 0.23 mg/mg (0-0.20)
[2023-11-25 09:54] LABS: Add Urine Microscopic? YES
[2023-11-25 09:57] LABS: Alanine Aminotransferase 37 U/L (6-35); Albumin Level 3.4 g/dL (3.5-5.1); Alkaline Phosphatase 99 U/L (38-126); Anion Gap 7 mmol/L (4-12); Aspartate Amino Transferase 32 U/L (14-36); Bilirubin,Total 0.6 mg/dL (0.2-1.3); Blood Urea Nitrogen 3 mg/dL (7-17); Carbon Dioxide 19 mmol/L (22-30); Chloride 110 mmol/L (98-107); Estimated Glomerular Filt Rate > 60; Glucose 118 mg/dL (65-110); Sodium 136 mmol/L (137-145); Uric Acid 4.6 mg/dL (2.5-7.5)
[2023-11-25 10:24] VITALS: BP 110/59; BP 113/64; PULSE 88; PULSE 97; BMI 42.5
--- NOTE | 2023-11-25 10:30 | LDADM ---
called Dr Velez reported PIH lab result and BP. dicharge order received
[2023-11-25 10:42] LABS: Potassium 3.6 mmol/L (3.4-5.0)
== END 2023-11-25 10:35 | disposition home or self-care (01) ==
LOC: ANHOBOP 09:04 → ANHOBPP 09:04
PROVIDERS: Visit Provider Obstetrics & Gynecology
DX: O13.9 Gestational [pregnancy-induced] hypertension without significant proteinuria, unspecified trimester (principal)
CPT/HCPCS: 36415; 59025; 80053; 81001; 82570; 84156; 84550; 85025; 87086; 99199

== ENCOUNTER 2023-12-19 05:15 | Inpatient (IN) | payer OTHER, MEDICAID, SELFPAY ==
[2023-12-19] VITALS (170 sets, daily range): BP systolic 104–151; BP diastolic 52–99; PULSE 71–130; RESP 18; TEMP 36.3–37.2; O2SAT 80–100; BMI 44.1
--- NOTE | 2023-12-19 05:37 | LDADM ---
This patient, Louluo Branch, was admitted to Labor/Delivery/Recovery 103 on 12/19/23 at 05:15. Plans for labor, pain management and were discussed with patient. Patient/family oriented to hospital policies and general routines including ID bracelet, bed and alarms, visiting hours, pain management, procedures, bathroom and other care routines, personal items, smoking policy, room service/diet and guest tray routines, infant security routines, and visiting hours. Patient/Family are encouraged to report perceived risks to care and to ask questions if they do not understand what they are told or what they should do. See OBIX for further documentation.
[2023-12-19] MEDS: LACTATED RINGERS 1,000 ML 125 ML IV CONT ×2 (06:06→08:01)
[2023-12-19] MEDS: AMPICILLIN 2 GM/NS 100 ML 2 GM/100 ML BAG IVPB (06:08)
[2023-12-19 06:12] LABS: Basophils Percent Auto 0.4 % (0.2-1.2); Eosinophils Absolute Auto 0.2 K/mm3 (0-0.3); Eosinophils Percent Auto 1.7 % (0-4.4); Hematocrit 38.8 % (37.0-47.0); Hemoglobin 13.4 g/dL (12.0-15.0); Immature Granulocyte Absolute 0.05 K/mm3 (0.00-0.031); Immature Granulocyte Percent A 0.4 % (0-0.5); Lymphocytes Absolute Auto 2.14 K/mm3 (0.9-3.2); Mean Corpuscular HGB Conc 34.5 g/dl (32-36); Mean Corpuscular Hemoglobin 29.9 pg (26-34); Mean Corpuscular Volume 86.6 fl (80-100); Mean Platelet Volume 11.1 fl (7.4-10.4); Monocytes Absolute Auto 0.6 K/mm3 (0.1-0.6); Monocytes Percent Auto 4.9 % (2.6-8.5); Neutrophils Absolute Auto 8.3 K/mm3 (1.3-6.7); Neutrophils Percent Auto 73.6 % (45.5-73.1); Platelet Count Result 208 k/mm3 (150-375); Red Blood Count 4.48 M/mm3 (4.2-5.4); Red Cell Distribution Width 15.1 % (11.5-14.5); White Blood Count 11.3 K/mm3 (4.5-10.0)
[2023-12-19 07:03] LABS: HIV 1/2 Ab P24 Ag Result Negative (Negative)
--- NOTE | 2023-12-19 07:08 | WPDANESEPP ---
Anes - Eval Pre Procedure Procedure: Labor epidural Date/Time: 12/19/23 07:08 Surgeon: Rosie Preop Diagnosis: Pain during labor Pre Op Diagnosis: IOL Patient Data Age: 33 Gender: F Height: 1.6 m Weight: 113 kg Last Vital Signs Temp 36.8 C 12/19/23 06:00 Pulse 106 H 12/19/23 07:03 BP 134/70 12/19/23 07:03 Pulse Ox 99 12/19/23 07:05 Allergies Allergy/AdvReac Type Severity Reaction Status Date / Time No Known Allergies Allergy Verified 12/19/23 05:50 Home Medications Medication Instructions Recorded Confirmed Type vit no.95-ferrous 1 tablet PO DAILY 08/29/21 12/19/23 History fumarate 28 mg-folic acid 800 mcg tablet () dicyclomine 10 mg capsule 10 mg PO TID 5 days #15 caps 02/05/23 12/19/23 Rx omeprazole 20 mg capsule,delayed 20 mg PO BID 30 days #60 caps 02/05/23 09/20/23 Rx release ondansetron 4 mg disintegrating 4 mg PO Q8H PRN nausea and 02/05/23 12/19/23 Rx tablet vomiting 7 days #20 tabs Laboratory Tests 12/19/23 06:03 WBC 11.3 H K/mm3 (4.5-10.0) RBC 4.48 M/mm3 (4.2-5.4) Hgb 13.4 g/dL (12.0-15.0) Hct 38.8 % (37.0-47.0) MCV 86.6 fl (80-100) MCH 29.9 pg (26-34) MCHC 34.5 g/dl (32-36) RDW 15.1 H % (11.5-14.5) Plt Count 208 k/mm3 (150-375) MPV 11.1 H fl (7.4-10.4) Immature Gran % (Auto) 0.4 % (0-0.5) Neut % (Auto) 73.6 H % (45.5-73.1) Lymph % (Auto) 19.0 % (18.3-44.2) Green % (Auto) 4.9 % (2.6-8.5) Eos % (Auto) 1.7 % (0-4.4) Baso % (Auto) 0.4 % (0.2-1.2) Lymph # (Auto) 2.14 K/mm3 (0.9-3.2) Green # (Auto) 0.6 K/mm3 (0.1-0.6) Eos # (Auto) 0.2 K/mm3 (0-0.3) Baso # (Auto) 0.0 K/mm3 (0.0-0.1) Abs Immat Gran (auto) 0.05 H K/mm3 (0.00-0.031) Absolute Neuts (auto) 8.3 H K/mm3 (1.3-6.7) Absolute Nucleated RBC 0.000 K/mm3 (0.0-0.012) Nucleated RBC % 0.0 % (0.0-0.2) RPR Pending HIV 1&2 Ab/P24 Ag 4thGn Negative (Negative) Blood Type Pending Antibody Screen Pending Patient hx anesthesia problems: none Family hx anesthesia problems: none Results Review: All pre-operative results and documents have been reviewed as part of the pre-operative evaluation. [facility] Past Medical History Medical History Acoustic neuroma Gestational diabetes Family History Family History Other No pertinent family history Social History Social History Smoking status: Current every day smoker Tobacco type: e-cigarettes/vaping Second hand tobacco smoke exposure: Yes Substance use: never Do You Feel Safe in your Home?: Yes Lack of Transportation: No Lack of Food: Never True Current Housing: I Have Housing Concerned About Future Housing: No Difficulty Paying Gas/Electric Bills: No Difficulty Paying for Meds: No Currently Unemployed: No Education: Bachelor's Degree Difficulty w/ Childcare or Family Care: No Spiritual care concerns: No Exam Day of Procedure 12/19/23 07:08 Patient weight: obese Heart: regular rate and rhythm Lungs: clear to auscultation Airway: Mallampati scale class II Neurological: alert and oriented
[2023-12-19] MEDS: CALCIUM CARBONATE (TUMS) 500 MG (200 MG ELEMENTAL) PO (07:55)
[2023-12-19] MEDS: OXYTOCIN 30 UNITS/NS 500 ML 30 UNITS/500 ML BAG IV CONT (09:15)
[2023-12-19] MEDS: FAMOTIDINE 20 MG/2 ML VIAL IV PUSH (11:05)
[2023-12-19] MEDS: AMPICILLIN 1 GM/NS 50 ML 1 GM/50 ML BAG IVPB (11:05)
[2023-12-19 12:51] LABS: Rapid Plasma Reagin Non-Reactive (NonReactive)
--- NOTE | 2023-12-19 14:54 | P.DS_ITS ---
OB - DS: Summary Time Spent with Patient Time attestation: Total time spent providing and/or coordinating discharge services: DS: Data Data Completed and Pending Labs on day of discharge: Labs from last 24 hours 12/19/23 06:03 WBC 11.3 H RBC 4.48 Hgb 13.4 Hct 38.8 MCV 86.6 MCH 29.9 MCHC 34.5 RDW 15.1 H Plt Count 208 MPV 11.1 H Immature Gran % (Auto) 0.4 Neut % (Auto) 73.6 H Lymph % (Auto) 19.0 [place] % (Auto) 4.9 Eos % (Auto) 1.7 Baso % (Auto) 0.4 Lymph # (Auto) 2.14 [place] # (Auto) 0.6 Eos # (Auto) 0.2 Baso # (Auto) 0.0 Abs Immat Gran (auto) 0.05 H Absolute Neuts (auto) 8.3 H Absolute Nucleated RBC 0.000 Nucleated RBC % 0.0 RPR Non-reactive HIV 1&2 Ab/P24 Ag 4thGn Negative Blood Type O Positive Antibody Screen Negative Discharge Plan Discharge Discharge Medications: No Action PNV cmb#95-ferrous fumarate-FA [] 28 mg iron- 800 mcg Tablet 1 tablet PO DAILY omeprazole 20 mg capsule,delayed release(DR/EC) 20 mg PO BID 30 Days Qty: 60 0RF ondansetron 4 mg tablet,disintegrating 4 mg PO Q8H PRN (Reason: nausea and vomiting) 7 Days Qty: 20 0RF dicyclomine 10 mg capsule 10 mg PO TID 5 Days Qty: 15 0RF Date of admission: 12/19/23 05:15 Primary Care Provider: PHYSICIAN,PROJECT MANAGEMENT MANAGER Admitting Provider: Adiel Velez Attending physician on admission: Adiel Velez
--- NOTE | 2023-12-19 14:54 | WPDOBADMIT ---
Obstetrics - Admit Note Admission Note: Late entry from 0900 on 11/19/23 record reviewed. Additions to the history and/or subsequent changes in the physical findings follow. 33 y/o at 39 weeks here for induction of labor. GBS pos. AVSS NST reactive TOCO: irregular contractions ABD soft, nontender, gravid, vertex EXT nontender Cervix 2/50/-2. AROM with clear fluid. Vertex. IUPC placed. A: IUP at term with favorable cervix, desiring induction of labor. GBS pos. P: Oxytocin. Anticipate . Ampicillin for GBS colonization.
--- NOTE | 2023-12-19 14:54 | PM.OBPRVD ---
OB - Vaginal Delivery Note Procedure Delivery date: 01/12/24 Events: Elective Induction of Labor and Positive Group B Strep (GBS) Induction method: Per Pitocin Protocol Delivery augmentation: Rupture of Membranes and Pitocin Delivery monitor: External FHT and External Uterine Route of delivery: Episiotomy description: None Laceration Description: Perineal - 2nd Degree Delivery repair: vicryl (3-0) Specimen: Yes (cord blood) Quantitative Blood Loss (ml): 160 Anesthesia type: Epidural Disposition: PACU Complications: None Narrative: 33 y/o at 39 weeks gestation who presented to the hospital for induction of labor. She was given IV ampicillin for GBS colonization. Oxytocin was administered intravenously. Amniotomy was performed with return of clear fluid. She received an epidural for pain control. Her labor progressed and her cervix dilated completely. She pushed with good effort and delivered the 's head to the perineum, followed by the body. The nose and mouth were bulb suctioned. After a delay, the cord was clamped and cut. The infant was handed off the field. Cord blood was collected. The placenta delivered spontaneously and was grossly normal in appearance. The usual 3 vessel cord was noted. A second degree midline perineal laceration was sustained. This was reapproximated using 3 0 Vicryl in the usual layered fashion. Excellent hemostasis resulted as did excellent reapproximation of the normal anatomy. Needle and instrument counts were correct. The patient was taken to recovery room in stable condition. The went to the nursery in stable condition. I was present and scrubbed for the entire delivery. Baby Date of : 12/19/23 Time of : 14:30 Weeks of gestation at delivery: 39 Infant gender: Female Weight (pounds): 9 presentation: vertex position: Left Occiput Anterior Placenta delivery description: Spontaneous and Normal Configuration Cord Vessel Description: 3 Vessels and Delayed Cord Clamping score one minute: 8 score five minutes: 9
[2023-12-19] MEDS: OXYTOCIN 30 UNITS/NS 500 ML 30 UNITS/500 ML BAG 125 UNITS IV CONT (15:07)
[2023-12-19] MEDS: IBUPROFEN 600 MG TABLET (17:23)
--- NOTE | 2023-12-19 18:30 | PC.NURSE ---
Patient transferred to post room #291 via wheelchair. Support person present. Oriented to unit, room, information board, rooming in, admission packet and security measures. Patient verbalizes understanding.
[2023-12-20 00:30] VITALS: BP 129/85; PULSE 61; RESP 18; TEMP 36.5; O2SAT 100
[2023-12-20 03:56] LABS: Hematocrit 34.7 % (37.0-47.0); Hemoglobin 12.1 g/dL (12.0-15.0)
--- NOTE | 2023-12-20 06:52 | PM.OBPNVD ---
OB - PN: Subj Subjective Date/time seen: 12/20/23 06:52 Patient comments: no complaints and pain well controlled baby status: doing well OB - PN: Obj Data Labs 12/20/23 03:51 Labs: Laboratory Results - last 24 hr 12/19/23 12/20/23 06:03 03:51 Hgb 12.1 Hct 34.7 L RPR Non-reactive HIV 1&2 Ab/P24 Ag 4thGn Negative Blood Type O Positive Antibody Screen Negative OB - PN A/P Plan day: 1 Plan: routine care Time Spent With Patient Time: Total time spent is greater than 50% in coordination of care (as documented) at patient's floor/unit and/or counseling patient: Exam : Bimanual exam- vagina & uterus: other (Uterus firm, nt @U)
[2023-12-20] MEDS: DOCUSATE SODIUM 100 MG CAPSULE PO (08:27)
[2023-12-20] MEDS: MULTIVIT/MIN/PREN/FOL AC/IRON TABLET 1 TAB PO (08:27)
[2023-12-20] MEDS: IBUPROFEN 600 MG TABLET PO ×3 (08:28→20:36)
[2023-12-20] MEDS: LANOLIN (LANSINOH) 7.5 GM CREAM 1 APPLIC TOPICAL (08:28)
[2023-12-20 08:34] VITALS: BP 127/86; PULSE 76; RESP 18; TEMP 36.3; O2SAT 97
--- NOTE | 2023-12-20 09:49 | WPDANLDPN2 ---
Anes-Prog Note L&D Date/Time: 12/20/23 09:49 Comfortable throughout: labor and delivery Neuraxial method: epidural Epidural/Spinal procedure site: clean & non-tender Neuro status: Neuro function grossly intact. Cardiovascular status: normal Respiratory status: normal Airway patency: baseline Mental status: baseline Post-Op hydration status: normal Vital Signs: Last Vital Signs Temp 36.3 C L 12/20/23 08:34 Pulse 76 12/20/23 08:34 Resp 18 12/20/23 08:34 BP 127/86 12/20/23 08:34 Pulse Ox 97 12/20/23 08:34 O2 Del Method Room Air 12/19/23 19:00 Pain score (VAS): 0 I/O: Intake & Output 12/19/23 12/20/23 12/20/23 23:59 07:59 15:59 Output Total 145 Balance -145 Post-procedural complaints: none Patient feedback: Patient satisfied with anesthetic care.
[2023-12-20 13:02] VITALS: BP 130/88; PULSE 82; RESP 18; TEMP 36.8; O2SAT 95
[2023-12-20] MEDS: ACETAMINOPHEN 325 MG TABLET 650 MG PO (18:47)
[2023-12-20 21:00] VITALS: BP 122/82; PULSE 97; RESP 20; TEMP 37.2
[2023-12-21] MEDS: ACETAMINOPHEN 325 MG TABLET 650 MG PO ×2 (03:54→09:44)
[2023-12-21] MEDS: IBUPROFEN 600 MG TABLET PO ×2 (03:55→09:46)
[2023-12-21 03:56] VITALS: BP 139/93; RESP 102; O2SAT 100
--- NOTE | 2023-12-21 04:02 | PC.NURSE ---
Pt called out feeling faint on toilet, 3-4 half dollar sized clots in toilet and one on floor. Cold compresses applied to forehead. Given Pepsi to drink. VS assessed and pt slightly tachy at 102. Provided pericare and assisted back to bed, Fundus is firm at one below umbilicus. Pt instructred not to get up oob without assistance from nursing staff. Motrin and Tylenol given for cramping. will continue to monitor.
--- NOTE | 2023-12-21 06:51 | PC.NURSE ---
Vital sign notation, 0356 heart rate charted as respirations, verified with KIMBERLY Gonzalez that 102 was heart rate, charted as respirations.
[2023-12-21 07:15] VITALS: BP 117/68; PULSE 73; RESP 18; TEMP 36.9; O2SAT 97
--- NOTE | 2023-12-21 08:37 | PM.OBPNVD ---
OB - PN: Subj Subjective Date/time seen: 12/21/23 08:37 Patient comments: no complaints and pain well controlled baby status: doing well OB - PN: Obj Data Labs 12/20/23 03:51 OB - PN A/P Plan day: 2 Plan: routine care, discharge home and follow up 6 weeks Time Spent With Patient Time: Total time spent is greater than 50% in coordination of care (as documented) at patient's floor/unit and/or counseling patient: Exam : Bimanual exam- vagina & uterus: other (Uterus firm, nt @U)
[2023-12-21] MEDS: MULTIVIT/MIN/PREN/FOL AC/IRON TABLET 1 TAB PO (09:42)
--- NOTE | 2024-01-12 11:21 | PM.OBDSVD ---
DS: Admitting Diagnosis Discharge Date 12/21/23 Admitting Diagnosis IUP at 39 weeks DS: Discharge Diagnosis Discharge Diagnosis (1) (normal spontaneous vaginal delivery): Code(s): O80 - Encounter for full-term uncomplicated delivery Status: Acute OB - DS: Summary OB Procedures : None OB Procedures Intrapartum: Spontaneous Vag Delivery and GBS prophylaxis OB Procedures: : None Peripartum Data Laceration Description: Perineal - 2nd Degree Episiotomy description: None Time Spent with Patient Time attestation: Total time spent providing and/or coordinating discharge services: Discharge Plan Discharge Attending physician on discharge: Adiel Velez Consulting providers: Shana Coleamn; Clara Meehan Discharging Clinician: Ashley Parada Anticipated Discharge Date/Time: 12/21/23 08:37 Patient Disposition: Home, Self-Care Activity: may shower and pelvic rest Diet: regular Discharge Instructions: Education: Mom and Baby Guide Given to: Mother Follow-Up: Call your delivering provider's office for an appointment to be seen in: 1 Week Mom and baby should come to the [facility] for the follow-up appointment. Appointment Date/Time: December 22, 2023 at 8:00 am What to expect at your follow-up visit: Blood Pressure Check Physical Assessment Call [phone] if you are unable to keep your appointment time. BREAST CARE: * Wear a snug supportive bra. * For engorgement discomfort: Breast Feeding: * Apply warm moist washcloths * Express milk as needed to relieve engorgement * Wear loose clothing Bottle Feeding: * May apply ice packs * For sore nipples: * Identify correct latch-on * Apply warm moist washcloths before and after nursing * Air dry nipples after nursing * May apply Lansinoh cream to nipples ABDOMINAL INCISION: (if applicable) * Allow incision to air dry * Do NOT use lotions for powders on your incision * When showering, allow soap and water to run over the incision, but do not wash incision EPISIOTOMY/PERINEAL CARE: * Until bleeding stops, use your brenda bottle after urinating * Change your pad frequently throughout the day * You may take sitz baths several times a day (fill your bathtub with warm water and soak for 20 minutes.) Do NOT bathe in the water * No tub baths until seen by your physician - You may shower ACTIVITY: * Rest as much as possible. * Do not exercise or lift anything heavier than your baby (such as laundry or other children.) * Avoid stairs or driving as much as possible. * Do not put anything into the vagina. No douching, tampons, or sexual activity until seen by physician. NOTIFY PHYSICIAN IF YOU HAVE ANY QUESTIONS OR IF ANY OF THE FOLLOWING SYMPTOMS OCCUR: * If your episiotomy or incision becomes red, swollen, or more painful than what you have experienced in the hospital. * If your vaginal bleeding becomes foul smelling. * If your vaginal bleeding becomes more heavy than a period or if your bleeding changes from pink to bright red. However, you may pass an occasional walnut-sized clot once or twice for the first week . * If you experience a sharp, shooting pain in you calves. * If you discover a hard, reddened area on your breast or if you experience flu-like symptoms. DIET: * Eat regular, well-balanced meals. * Drink plenty of fluids daily. If , drink to thirst. Patient Instructions: Antibiotic Form Stand Alone Forms: General Discharge Information Follow-up/Referrals: Adiel Velez MD [Physician] - Call for Appointment Discharge Medications: Continued PNV cmb#95-ferrous fumarate-FA [] 28 mg iron- 800 mcg Tablet 1 tablet PO DAILY Discontinued omeprazole 20 mg capsule,delayed release(DR/EC) 20 mg PO BID 30 Days Qty: 60 0RF ondansetron 4 mg tablet,disintegrating 4 mg
== END 2023-12-21 12:02 | disposition home or self-care (01) | DRG 807 ==
LOC: ANHOB2 12-21 11:06 → ANHLDR 12-23 07:47 → ANHOB2 12-23 07:47
PROVIDERS: Admitting Provider Obstetrics & Gynecology; Visit Provider Obstetrics & Gynecology Gynecology
DX: O99.824 Streptococcus B carrier state complicating childbirth (principal); Z37.0 Single live birth; Z3A.39 39 weeks gestation of pregnancy; O69.81X0 Labor and delivery complicated by cord around neck, without compression, not applicable or unspecified; O70.1 Second degree perineal laceration during delivery
CPT/HCPCS: 36415; 59025; 85014; 85018; 85025; 86592; 86703; 86850; 86900; 86901; A9270; G0432; J0290; J2590; J2795; J7120

== ENCOUNTER 2024-02-29 00:42 | Emergency (ER) | payer OTHER, MEDICAID, SELFPAY ==
--- NOTE | ~2024-02-29 | CT_ITS ---
EXAMINATION: CT abdomen pelvis w con DATE: 02/29/2024 02:42 INDICATION: Right upper quadrant abdominal pain TECHNIQUE: Computed tomography (CT) of the abdomen and pelvis was performed with 100 mL Omnipaque-350 intravenous contrast. Automated exposure control and iterative reconstruction technique were employe d. The dose-length product was 988.07 mGy-cm. COMPARISON: None FINDINGS: Mild dependent atelectasis/scarring in the bilateral lower lobes. Heart size is normal. No pericardia l or pleural effusion. Partially visualized left breast implant. Small region of focal hepatic steato sis at the ligamentum teres. There are numerous small calcified gallstones in the nondilated gallblad laura. There appears be a tiny stone in the region of the cystic duct. No abnormal gallbladder wall thi ckening or pericholecystic inflammatory stranding to suggest acute cholecystitis. Liver, spleen, panc reas, bilateral adrenal glands are normal. There are bilateral nonobstructing renal stones, 4 on the right, the largest measuring 3-4 mm and 8 single stone measuring 1-2 mm at an upper pole calyx of the left kidney. 1 cm left renal cyst. No ureteral stones or hydronephrosis. Bladder, anteverted uterus and bilateral adnexa are unremarkable. Bowels including the appendix are normal. Mild lower thoracic dextrocurvature with mild spondylosis. Chronic mild anterior wedging at T11 and T12. IMPRESSION: 1. Cholelithiasis with suggestion of a tiny stone along the cystic duct. Gallbladder appears normal h owever would correlate for Oviedo sign. If there is clinical concern for early acute cholecystitis co nsider HIDA scan for further evaluation. Reviewed, dictated and finalized at location A. IMPRESSION: 1. Cholelithiasis with suggestion of a tiny stone along the cystic duct. Gallbl adder appears normal however would correlate for Oviedo sign. If there is clini rhonda concern for early acute cholecystitis consider HIDA scan for further evalua tion.
[2024-02-29 00:49] VITALS: BP 146/101; PULSE 66; RESP 18; TEMP 36.4; O2SAT 96
--- NOTE | 2024-02-29 00:59 | ED.ABDPAIN ---
HPI - Abdominal Pain General Chief Complaint: Abdominal Pain Stated Complaint: abd pain Time Seen by Provider: 02/29/24 00:45 History of Present Illness HPI narrative: 33-year-old female presenting to the emergency department for right upper quadrant pain that started approximately 45 minutes ago. Patient states she does have a prior diagnosis of gallstones but has not had issues with biliary colic. Patient was just trying to get to sleep when she had onset of the pain. Patient does describe some associated nausea and vomiting. Related Data Home Medications Medication Instructions Recorded Confirmed vit no.95-ferrous 1 tablet PO DAILY 08/29/21 12/19/23 fumarate 28 mg-folic acid 800 mcg tablet () Allergies Allergy/AdvReac Type Severity Reaction Status Date / Time No Known Allergies Allergy Verified 02/29/24 01:08 Review of Systems Review of Systems: All systems reviewed & are unremarkable except as noted in HPI and below PMFSH Past Medical History Medical History Acoustic neuroma Gestational diabetes Family History Family History Other No pertinent family history Social History Social History Smoking status: Current every day smoker Tobacco type: e-cigarettes/vaping Second hand tobacco smoke exposure: Yes Substance use: never Do You Feel Safe in your Home?: Yes Lack of Transportation: No Lack of Food: Never True Current Housing: I Have Housing Concerned About Future Housing: No Difficulty Paying Gas/Electric Bills: No Difficulty Paying for Meds: No Currently Unemployed: No Education: Bachelor's Degree Difficulty w/ Childcare or Family Care: No Spiritual care concerns: No Exam Narrative: APPEARANCE: Well appearing, no pain, no distress, well-nourished. HEAD: normocephalic, atraumatic. EYES: PERRLA/EOMI, conjunctivae clear. NOSE: Normal no drainage EARS:TMS clear with good light reflex. THROAT: Pharynx clear, no exudate. NECK: Supple. No adenopathy, no masses. RESPIRATORY: Airway patent, respirations nonlabored. Clear to auscultation bilaterally, no rales, rhonchi, wheezing. CARDIOVASCULAR: Regular rate and rhythm without murmurs rubs or gallops. ABDOMINAL: right upper quadrant tenderness to palpation MUSCULOSKELETAL: Moves all extremities. Strength/ROM intact, No edema, No calf tenderness. NEURO: Alert. Cranial nerves II through XII intact. Grossly intact SKIN: Warm, dry. Normal Color Course Course Emergency Course: Patient was treated for a urinary tract infection. Vital Signs Vital signs: Vital Signs Temperature 97.6 F 02/29/24 00:49 Pulse Rate 66 02/29/24 00:49 Respiratory Rate 18 02/29/24 00:49 Blood Pressure 146/101 H 02/29/24 00:49 Pulse Oximetry 96 02/29/24 00:49 Oxygen Delivery Room Air 02/29/24 00:49 Temperature 97.6 F 02/29/24 00:49 Pulse Rate 69 02/29/24 03:42 Respiratory Rate 18 02/29/24 03:42 Blood Pressure 122/87 02/29/24 03:42 Pulse Oximetry 98 02/29/24 03:42 Oxygen Delivery Room Air 02/29/24 00:49 MDM - Abdominal Pain MDM Narrative Medical decision making narrative: 33-year-old female presents to the emergency department for evaluation for abdominal pain. CT scan shows bilateral nonobstructing renal stones measuring up to 4 mm. No obstructive uropathy or delayed nephrogram. UA was concerning for urinary tract infection. Patient is afebrile with no leukocytosis. No acute findings on the patient's CMP. No elevation of AST ALT alk-phos or lipase, low concern for biliary colic or acute cholecystitis from the labs. Patient will be started on antibiotics for urinary tract infection and provided medications for home. Patient was updated on results of the workup and plan for treatment.
[2024-02-29] MEDS: SODIUM CHLORIDE 0.9% IV 1,000 ML 999 ML IV CONT (01:07)
[2024-02-29] MEDS: ONDANSETRON INJ 4 MG/2 ML VIAL IV PUSH (01:07)
[2024-02-29] MEDS: HYDROmorphone HCL INJ (*CRX) 1 MG/ML SYR 0.5 MG IV PUSH (01:07)
[2024-02-29 01:19] LABS: Basophils Percent Auto 0.5 % (0.2-1.2); Eosinophils Absolute Auto 0.5 K/mm3 (0-0.3); Eosinophils Percent Auto 8.3 % (0-4.4); Hematocrit 42.2 % (37.0-47.0); Hemoglobin 14.4 g/dL (12.0-15.0); Immature Granulocyte Absolute 0.01 K/mm3 (0.00-0.031); Immature Granulocyte Percent A 0.2 % (0-0.5); Lymphocytes Absolute Auto 2.55 K/mm3 (0.9-3.2); Mean Corpuscular HGB Conc 34.1 g/dl (32-36); Mean Corpuscular Hemoglobin 29.5 pg (26-34); Mean Corpuscular Volume 86.5 fl (80-100); Mean Platelet Volume 10.3 fl (7.4-10.4); Monocytes Absolute Auto 0.6 K/mm3 (0.1-0.6); Monocytes Percent Auto 8.6 % (2.6-8.5); Neutrophils Absolute Auto 2.9 K/mm3 (1.3-6.7); Neutrophils Percent Auto 43.4 % (45.5-73.1); Platelet Count Result 228 k/mm3 (150-375); Red Blood Count 4.88 M/mm3 (4.2-5.4); Red Cell Distribution Width 13.1 % (11.5-14.5); White Blood Count 6.5 K/mm3 (4.5-10.0)
[2024-02-29 01:25] LABS: Appearance Urine Turbid (Clear); Bacteria Urine Rare /hpf; Bilirubin Urine Negative (Negative); Blood Urine 2+ (Negative); Color Urine Yellow (Yellow); Glucose Urine UA Negative (Negative); Ketones Urine Negative (Negative); Leukocyte Esterase Ur Trace LEU/UL (Negative); Nitrate Urine Negative (Negative); Non Pathogenic Casts 0-2; Protein Urine Negative (Negative); Specific Grav Ur 1.029 (1.001-1.035); Squamous Epithelial Cell Urine Moderate /hpf (Few); Urobilinogen Urine 0.2 mg/dL (<2.0); WBC Urine 21-50 /hpf (0-3); pH Urine 5.5 (5.0-9.0)
[2024-02-29 01:29] LABS: Add Urine Microscopic? YES
[2024-02-29 01:30] LABS: INR 0.9; Prothrombin Time 12.2 Seconds (11.1-14.7)
[2024-02-29 01:31] LABS: Partial Thromboplastin Time 33.8 Seconds (22.3-36.8)
[2024-02-29 01:33] LABS: Lactic Acid Reflex 1.1 mmol/L (0.7-2.0)
[2024-02-29 02:00] LABS: Alanine Aminotransferase 22 U/L (6-35); Albumin Level 3.7 g/dL (3.5-5.1); Alkaline Phosphatase 91 U/L (38-126); Anion Gap 11 mmol/L (4-12); Aspartate Amino Transferase 23 U/L (14-36); Bilirubin,Total 0.5 mg/dL (0.2-1.3); Blood Urea Nitrogen 13 mg/dL (7-17); Calcium 8.7 mg/dL (8.4-10.2); Carbon Dioxide 22 mmol/L (22-30); Chloride 107 mmol/L (98-107); Estimated CRCL calculation 130 ml/min; Estimated Glomerular Filt Rate > 60; Glucose 104 mg/dL (65-110); Lipase 51 U/L (23-300); Potassium 3.7 mmol/L (3.4-5.0); Sodium 140 mmol/L (137-145)
[2024-02-29 03:42] VITALS: BP 122/87; PULSE 69; RESP 18; O2SAT 98
== END 2024-02-29 04:58 | disposition home or self-care (01) ==
PROVIDERS: Emergency Provider Emergency Medicine
DX: N39.0 Urinary tract infection, site not specified (principal); F17.290 Nicotine dependence, other tobacco product, uncomplicated; K80.20 Calculus of gallbladder without cholecystitis without obstruction
CPT/HCPCS: 36415; 74177; 80053; 81001; 81025; 83605; 83690; 85025; 85610; 85730; 87086; 96361; 96365; 96375; 99284; J0696; J1170; J2405; J7030; Q9967

== ENCOUNTER 2024-03-01 14:47 | Observation (INO) | payer OTHER, MEDICAID, SELFPAY ==
--- NOTE | ~2024-03-01 | US_ITS ---
EXAMINATION: US abdomen limited DATE: 03/01/2024 16:08 INDICATION: RUQ pain TECHNIQUE: Multiple grayscale and Doppler ultrasound images of limited portions of the abdomen were o btained. COMPARISON: CT abdomen pelvis 02/29/2024. FINDINGS: The visualized portions of the pancreas are normal. The liver is normal with normal echogen icity and echotexture. No surface nodularity. Normal hepatopetal flow in the main portal vein. Gallst ones. Thickened gallbladder wall. Pericholecystic fluid. The common bile duct measures 5 mm. Positive sonographic Oviedo sign. IMPRESSION: Acute cholecystitis. Reviewed, dictated and finalized at location K. IMPRESSION: Acute cholecystitis.
[2024-03-01 15:09] VITALS: BP 145/81; PULSE 91; RESP 20; TEMP 36.1; O2SAT 99
--- NOTE | 2024-03-01 15:33 | ED.ABDPAIN ---
HPI - Abdominal Pain General Chief Complaint: Abdominal Pain <DACIA Jimenez Last Filed: 03/02/24 11:16> Stated Complaint: ab pain <DACIA Jimenez Last Filed: 03/02/24 11:16> Time Seen by Provider: 03/01/24 15:33 <Brittanie Whitfield PA-C - Last Filed: 03/02/24 11:16> Focused HPI: This is a 33 year old female that presents to the ER for RUQ pain. Ongoing since yesterday. Was elevated yesterday in our ER. Found to have UTI and kidney stone. Radiologist called later and said her gallbladder looks inflamed. She then went to the ER at [facility] and was told her gallbladder had stones. They wanted her to stay in the hospital and have surgery. She did not want to stay in their hospital at that time. Reports since she has tried to eat and cannot due to pain. Reports associated nausea. Denies fever or vomiting. GENERAL: Well-appearing, well-nourished, and in no acute distress. HEAD: Normocephalic, atraumatic. CHEST: Clear to auscultation. ?No respiratory distress. HEART: Regular rate and rhythm.? NEURO: ?Alert and oriented x3. Patient screened in triage and initial orders placed.? ?Additional care and disposition to be based upon?diagnostic testing and treatment. <Brittanie Whitfield PA-C - Last Filed: 03/02/24 11:16> Source: patient <Lisa Comer PA-C - Last Filed: 03/01/24 20:33> Mode of arrival: ambulatory <DACIA Goodrich Last Filed: 03/01/24 20:33> Limitations: no limitations <DACIA Goodrich Last Filed: 03/01/24 20:33> History of Present Illness HPI narrative: patient is a 33-year-old female who presents the ED with report of epigastric and right upper quadrant pain. Patient reports known history of gallstones and history of intermittent right upper quadrant pain. She reports pain has been worsening over the last 2 days. Radiates around to her R mid back. She was seen ED overnight on 02/28, CT scan overnight read showed nonobstructing renal stones. Patient had normal WBC count, normal LFTs, UA was consistent with infection. She was discharged with antibiotics for UTI. Patient reports pain became worse overnight. She was seen at [facility] in [place] today, diagnosed with acute cholecystitis. Patient states she refused to undergo surgery at that hospital and wanted to come here for surgery. 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 patient reports pain is currently a 5/10 on the pain scale. She does report current nausea. Denies vomiting. Denies dysuria, hematuria, diarrhea, constipation, fevers. Patient is from [facility] on 12/18. Currently /pumping. <Lisa Comer PA-C - Last Filed: 03/01/24 20:33> Related Data Home Medications: Home Medications Medication Instructions Recorded Confirmed vit no.95-ferrous 1 tablet PO DAILY 08/29/21 03/01/24 fumarate 28 mg-folic acid 800 mcg tablet () <Brittanie Whitfield PA-C - Last Filed: 03/02/24 11:16> Allergies/Adverse Reactions: Allergies Allergy/AdvReac Type Severity Reaction Status Date / Time No Known Allergies Allergy Verified 03/01/24 15:13 <Brittanie Whitfield PA-C - Last Filed: 03/02/24 11:16> Review of Systems Review of Systems: CONSTITUTIONAL: Denies fever, chills, or sweats. GASTROINTESTINAL: See HPI. GENITOURINARY: Denies dysuria or hematuria. MUSCULOSKELETAL: See HPI. <Lisa Comer PA-C - Last Filed: 03/01/24 20:33> All systems reviewed & are unremarkable except as noted in HPI and below <DACIA Goodrich Last Filed: 03/01/24 20:33> [facility] Past Medical History Medical History: Medical History Acoustic neuroma Gestational diabetes <DACIA Jimenez Last Filed: 03/02/24 11:16> Family History Family History: Fami
[2024-03-01 18:07] LABS: Basophils Percent Auto 0.2 % (0.2-1.2); Eosinophils Absolute Auto 0.4 K/mm3 (0-0.3); Eosinophils Percent Auto 4.4 % (0-4.4); Hematocrit 41.7 % (37.0-47.0); Hemoglobin 14.3 g/dL (12.0-15.0); Immature Granulocyte Absolute 0.02 K/mm3 (0.00-0.031); Immature Granulocyte Percent A 0.2 % (0-0.5); Lymphocytes Absolute Auto 2.31 K/mm3 (0.9-3.2); Lymphocytes Percent Auto 25.6 % (18.3-44.2); Mean Corpuscular HGB Conc 34.3 g/dl (32-36); Mean Corpuscular Hemoglobin 29.5 pg (26-34); Mean Platelet Volume 9.9 fl (7.4-10.4); Monocytes Absolute Auto 0.4 K/mm3 (0.1-0.6); Neutrophils Absolute Auto 5.9 K/mm3 (1.3-6.7); Neutrophils Percent Auto 65.6 % (45.5-73.1); Platelet Count Result 251 k/mm3 (150-375); Red Blood Count 4.85 M/mm3 (4.2-5.4)
--- NOTE | 2024-03-01 18:09 | ED.ABDPAIN ---
HPI - Abdominal Pain General Chief Complaint: Abdominal Pain Stated Complaint: ab pain Time Seen by Provider: 03/01/24 15:33 Source: patient and old records reviewed Mode of arrival: ambulatory Limitations: no limitations History of Present Illness HPI narrative: patient is a 33-year-old female who presents the ED with report of epigastric and right upper quadrant pain. Patient reports known history of gallstones and history of intermittent right upper quadrant pain. She reports pain has been worsening over the last 2 days. Radiates around to her R mid back. She was seen ED overnight on 02/28, CT scan overnight read showed nonobstructing renal stones. Patient had normal WBC count, normal LFTs, UA was consistent with infection. She was discharged with antibiotics for UTI. Patient reports pain became worse overnight. She was seen at [facility] in [place] today, diagnosed with acute cholecystitis. Patient states she refused to undergo surgery at that hospital and wanted to come here for surgery. 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 patient reports pain is currently a 5/10 on the pain scale. She does report current nausea. Denies vomiting. Denies dysuria, hematuria, diarrhea, constipation, fevers. Patient is from [facility] on 12/18. Currently /pumping. Related Data Home Medications Medication Instructions Recorded Confirmed vit no.95-ferrous 1 tablet PO DAILY 08/29/21 12/19/23 fumarate 28 mg-folic acid 800 mcg tablet () Allergies Allergy/AdvReac Type Severity Reaction Status Date / Time No Known Allergies Allergy Verified 03/01/24 15:13 Review of Systems Review of Systems: CONSTITUTIONAL: Denies fever, chills, or sweats. GASTROINTESTINAL: See HPI. GENITOURINARY: Denies dysuria or hematuria. MUSCULOSKELETAL: See HPI. All systems reviewed & are unremarkable except as noted in HPI and below PMFSH Past Medical History Medical History Acoustic neuroma Gestational diabetes Family History Family History Other No pertinent family history Social History Social History Smoking status: Current every day smoker Tobacco type: e-cigarettes/vaping Second hand tobacco smoke exposure: Yes Substance use: never Do You Feel Safe in your Home?: Yes Lack of Transportation: No Lack of Food: Never True Current Housing: I Have Housing Concerned About Future Housing: No Difficulty Paying Gas/Electric Bills: No Difficulty Paying for Meds: No Currently Unemployed: No Education: Bachelor's Degree Difficulty w/ Childcare or Family Care: No Spiritual care concerns: No Exam Narrative: GENERAL: Well appearing, Obese with BMI of 38.7, non-toxic, in no acute distress. HEAD: Normocephalic, atraumatic. RESPIRATORY: Airway patent, respirations nonlabored. Clear to auscultation bilaterally, no rales, rhonchi, wheezing. CARDIOVASCULAR: Regular rate and rhythm without murmurs, rubs, or gallops. ABDOMINAL: Soft, mild tenderness in epigastric region and right upper quadrant, no rebound. Nondistended. Normoactive BS. MUSCULOSKELETAL: Moves all extremities. No gross deformities. SKIN: Warm, dry, normal color. NEURO: A&O X3. Speech clear. Cranial nerves II-XII grossly intact. Steady gait. No ataxic movements. PSYCHIATRIC: Appropriate mood and affect. Normal interaction. Course Vital Signs Vital signs: Vital Signs Temperature 96.9 F L 03/01/24 15:09 Pulse Rate 91 03/01/24 15:09 Respiratory Rate 20 03/01/24 15:09 Blood Pressure 145/81 H 03/01/24 15:09 Pulse Oximetry 99 03/01/24 15:09 Oxygen Delivery Room Air 03/01/24 15:09 Temperature 96.9 F L
[2024-03-01 18:15] LABS: Appearance Urine Clear (Clear); Bacteria Urine None Seen /hpf; Bilirubin Urine Negative (Negative); Blood Urine Negative (Negative); Color Urine Yellow (Yellow); Glucose Urine UA Negative (Negative); Ketones Urine Negative (Negative); Leukocyte Esterase Ur Trace LEU/UL (Negative); Nitrate Urine Negative (Negative); Non Pathogenic Casts 0-2; Protein Urine Negative (Negative); RBC Urine 0-2 /hpf (0-2); Specific Grav Ur 1.035 (1.001-1.035); Squamous Epithelial Cell Urine Few /hpf (Few)
[2024-03-01 18:16] LABS: Alanine Aminotransferase 23 U/L (6-35); Albumin Level 4.2 g/dL (3.5-5.1); Alkaline Phosphatase 86 U/L (38-126); Anion Gap 10 mmol/L (4-12); Aspartate Amino Transferase 35 U/L (14-36); Bilirubin,Total 0.6 mg/dL (0.2-1.3); Blood Urea Nitrogen 12 mg/dL (7-17); Calcium 8.2 mg/dL (8.4-10.2); Carbon Dioxide 22 mmol/L (22-30); Chloride 108 mmol/L (98-107); Estimated CRCL calculation 129 ml/min; Estimated Glomerular Filt Rate > 60; Glucose 83 mg/dL (65-110); Lipase 54 U/L (23-300); Potassium 3.8 mmol/L (3.4-5.0); Sodium 140 mmol/L (137-145)
[2024-03-01] MEDS: ONDANSETRON INJ 4 MG/2 ML VIAL IV PUSH (18:16)
[2024-03-01] MEDS: PIPERACILLN/TAZ 3.375GM/NS50ML 3.375 GM/50 ML BAG IVPB ×2 (18:16→23:13)
[2024-03-01] MEDS: MORPHINE SULFATE (*CRX) 4 MG/ML INJ IV PUSH (18:16)
[2024-03-01] MEDS: SODIUM CHLORIDE 0.9% IV 1,000 ML 999 ML IV CONT (18:17)
[2024-03-01 18:20] LABS: Add Urine Microscopic? YES
[2024-03-01 19:37] LABS: Lactic Acid Reflex 0.8 mmol/L (0.7-2.0)
[2024-03-01] MEDS: SODIUM CHLORIDE 0.9% IV 1,000 ML 100 ML IV CONT (20:12)
[2024-03-01 20:20] VITALS: BP 134/80; PULSE 76; RESP 16; TEMP 36.7; O2SAT 99
--- NOTE | 2024-03-01 20:42 | PM.IMHP ---
H&P: HPI History of Present Illness Date/Time: 03/01/24 20:42 Chief Complaint: RUQ pain Narrative: This is a 33-year-old female 9 weeks patient presents to the emergency room due to right upper quadrant pain for 2 days poor per orally intake, nausea, no vomiting, chills, psoriasis flare up. preliminary workup was significant for CT of abdomen and pelvis was reported as: EXAMINATION: CT abdomen pelvis w con DATE: 02/29/2024 02:42 INDICATION: Right upper quadrant abdominal pain TECHNIQUE: Computed tomography (CT) of the abdomen and pelvis was performed with 100 mL Omnipaque-350 intravenous contrast. Automated exposure control and iterative reconstruction technique were employed. The dose-length product was 988.07 mGy-cm. COMPARISON: None FINDINGS: Mild dependent atelectasis/scarring in the bilateral lower lobes. Heart size is normal. No pericardial or pleural effusion. Partially visualized left breast implant. Small region of focal hepatic steatosis at the ligamentum teres. There are numerous small calcified gallstones in the nondilated gallbladder. There appears be a tiny stone in the region of the cystic duct. No abnormal gallbladder wall thickening or pericholecystic inflammatory stranding to suggest acute cholecystitis. Liver, spleen, pancreas, bilateral adrenal glands are normal. There are bilateral nonobstructing renal stones, 4 on the right, the largest measuring 3-4 mm and 8 single stone measuring 1-2 mm at an upper pole calyx of the left kidney. 1 cm left renal cyst. No ureteral stones or hydronephrosis. Bladder, anteverted uterus and bilateral adnexa are unremarkable. Bowels including the appendix are normal. Mild lower thoracic dextrocurvature with mild spondylosis. Chronic mild anterior wedging at T11 and T12. IMPRESSION: 1. Cholelithiasis with suggestion of a tiny stone along the cystic duct. Gallbladder appears normal however would correlate for Oviedo sign. If there is clinical concern for early acute cholecystitis consider HIDA scan for further evaluation. EXAMINATION: US abdomen limited DATE: 03/01/2024 16:08 INDICATION: RUQ pain TECHNIQUE: Multiple grayscale and Doppler ultrasound images of limited portions of the abdomen were obtained. COMPARISON: CT abdomen pelvis 02/29/2024. FINDINGS: The visualized portions of the pancreas are normal. The liver is normal with normal echogenicity and echotexture. No surface nodularity. Normal hepatopetal flow in the main portal vein. Gallstones. Thickened gallbladder wall. Pericholecystic fluid. The common bile duct measures 5 mm. Positive sonographic Oviedo sign. IMPRESSION: Acute cholecystitis. Review of Systems Review of Systems: RUQ pain Constitutional: Constitutional: Reports chills and Reports poor appetite PMFSH Past Medical History Medical History Acoustic neuroma Gestational diabetes Family History Family History Other No pertinent family history Social History Social History Smoking status: Current every day smoker Tobacco type: e-cigarettes/vaping Second hand tobacco smoke exposure: Yes Alcohol intake: never Substance use: never Do You Feel Safe in your Home?: Yes Lack of Transportation: No Lack of Food: Never True Current Housing: I Have Housing Concerned About Future Housing: No Difficulty Paying Gas/Electric Bills: No Difficulty Paying for Meds: No Currently Unemployed: No Education: Bachelor's Degree Difficulty w/ Childcare or Family Care: No Spiritual care concerns: No Meds Home Medications and Allergies Home Medications Medication Instructions Recorded Confirmed Type vit no.95-ferrous 1 tablet PO DAILY 08/29/21 03/01/24 History fumarate 28 mg-folic acid 800 mcg tablet ()
[2024-03-01 21:42] VITALS: BP 142/85; PULSE 76; RESP 18; TEMP 36.5; O2SAT 98; BMI 41.3
[2024-03-01 21:43] VITALS: BP 131/70; PULSE 81; RESP 16; TEMP 36.2; O2SAT 98
--- NOTE | 2024-03-01 21:51 | ADMGEN ---
This patient, Loulou Branch, was admitted to Medical Room 253-01. Patient/family oriented to hospital policies and general routines including ID bracelet, bed and alarms, visiting hours, pain management, procedures, bathroom and other care routines, personal items, smoking policy, room service/diet, and visiting hours. Information on how to activate the Rapid Response Team has been discussed. Patient/Family are encouraged to report perceived risks to care and to ask questions if they do not understand what they are told or what they should do.
[2024-03-02] VITALS (14 sets, daily range): BP systolic 117–145; BP diastolic 55–99; PULSE 64–81; RESP 10–22; TEMP 36.5–36.9; O2SAT 93–100
[2024-03-02] MEDS: PIPERACILLN/TAZ 3.375GM/NS50ML 3.375 GM/50 ML BAG IVPB ×2 (05:10→12:05)
--- NOTE | 2024-03-02 07:32 | PM.IMPN ---
Progress Note: A&P Assessment and Plan (1) Acute cholecystitis: Code(s): K81.0 - Acute cholecystitis Status: Acute Assessment and Plan: Complaints of abdominal pain with associated nausea, vomiting, and anorexia Afebrile, no leukocytosis on admission, lactic normal Blood cultures ordered CT abdomen and pelvis showed cholelithiasis. Right upper quadrant abdominal ultrasound showed acute cholecystitis with positive Oviedo sign. Patient was started on Zosyn and IV fluids NPO General surgery was consulted, recs appreciated P.r.n. morphine, Dilaudid, Zofran Incentive spirometry prn (2) (normal spontaneous vaginal delivery): Code(s): O80 - Encounter for full-term uncomplicated delivery Status: Acute Assessment and Plan: 9 weeks after uncomplicated vaginal delivery SCDs for DVT prophylaxis until after surgery Plan Feeding: NPO until surgery consult Analgesia: Tylenol Thromboembolic prophylaxis: SCD Ulcer prophylaxis: Protonix Bowel regimen: miralax Lines: PIV Antibiotics: Zosyn Disposition: 33 year old female who is post 9 weeks who presented with complaints of abdominal pain, nausea, and vomiting. Found to have acute cholecystics. Started empirically on antibiotics, NPO, and going for laparoscopic cholecystectomy this afternoon. Advance Care Plan I have confirmed that the patient's Advanced Care Plan is present, code status is documented, or surrogate decision maker is listed in patient medical record.: Yes Medication Reconciliation I have utilized all available resources to obtain, update and review the patients current medications (includes all prescriptions, OTC, herbals, cannabis, and nutritional supplements).: Yes Subjective Date/time seen: 03/02/24 07:32 Interval history: This is a 33-year-old female 9 weeks patient presents to the emergency room due to right upper quadrant pain for 2 days poor per orally intake, nausea, no vomiting, chills, psoriasis flare up. Imaging found acute cholecystitis. 03/02: Very pleasantly seen resting in bed with at bedside. She is in no acute distress. She says that her pain is being controlled with IV pain medication. She is set to go for a laparoscopic cholecystectomy with Dr. Azevedo this afternoon. Review of Systems Review of Systems: All systems reviewed & are unremarkable except as noted in HPI and below Exam Narrative: General: well appearing, appears stated age. HEENT: normocephalic, atraumatic. Mucous membranes moist. EOMI, PERRLA, bilateral sclera anicteric, no conjunctival injection. Neck supple without JVD, lymphadenopathy, or bruit. Respiratory: clear to auscultation bilaterally. No rales/rhonic/wheezes. Cardiovascular: Regular rate and rhythm, normal S1-S2 upon auscultation. No murmurs, rubs, or clicks. PMI is nondisplaced, capillary refill less than 3 second. Abdomen: Soft, round, no pulsatile masses, nondistended and mildly tender to the right upper quadrant. No rebound, no guarding. No CVA tenderness, no hepatosplenomegaly. Bowel sounds present to all four quadrants. No high pitch or tinkling sounds, resonant to percussion. Extremities: No cyanosis, clubbing, or edema present. Pulses are palpable 2/2. Active ROM to all four extremities. Neuro: Alert and orientated x 4. PERRLA. Cranial nerves 2-12 intact without focal deficit. Skin: Warm, dry, and intact, without rash, erythema, or lesion. Lines: PIV Incisions: Psych: pleasant, cooperative, normal speech, normal affect, no hallucinations, no dysarthria Objective Data Vital Signs Vital Signs: Vital Signs - 24 hr 03/01/24 15:09 03/01/24 20:20 03/01/24 21:43 Temperature 96.9 F L 98.0 F 97.2 F L Pulse Rate 91 76 81 Respiratory Rate 20 16 16 Blood Pressure 145/81 H 134/80 131/70 Pulse Oximetry 99 99 98 Oxygen Delivery Room Air 03/01/24 21:57 03/01/24 21:42 03/02/24 05:19 Temperature 97.7 F 98.
[2024-03-02 08:24] LABS: Basophils Percent Auto 0.3 % (0.2-1.2); Eosinophils Absolute Auto 0.5 K/mm3 (0-0.3); Eosinophils Percent Auto 6.4 % (0-4.4); Hematocrit 38.1 % (37.0-47.0); Hemoglobin 12.9 g/dL (12.0-15.0); Immature Granulocyte Absolute 0.02 K/mm3 (0.00-0.031); Immature Granulocyte Percent A 0.3 % (0-0.5); Lymphocytes Absolute Auto 1.98 K/mm3 (0.9-3.2); Lymphocytes Percent Auto 25.4 % (18.3-44.2); Mean Corpuscular HGB Conc 33.9 g/dl (32-36); Mean Corpuscular Hemoglobin 29.7 pg (26-34); Mean Corpuscular Volume 87.6 fl (80-100); Mean Platelet Volume 9.8 fl (7.4-10.4); Monocytes Absolute Auto 0.3 K/mm3 (0.1-0.6); Monocytes Percent Auto 4.1 % (2.6-8.5); Neutrophils Percent Auto 63.5 % (45.5-73.1); Platelet Count Result 215 k/mm3 (150-375); Red Blood Count 4.35 M/mm3 (4.2-5.4); Red Cell Distribution Width 12.9 % (11.5-14.5); White Blood Count 7.8 K/mm3 (4.5-10.0)
[2024-03-02 08:38] LABS: Alanine Aminotransferase 19 U/L (6-35); Albumin Level 3.5 g/dL (3.5-5.1); Alkaline Phosphatase 74 U/L (38-126); Anion Gap 9 mmol/L (4-12); Aspartate Amino Transferase 21 U/L (14-36); Bilirubin,Total 0.7 mg/dL (0.2-1.3); Blood Urea Nitrogen 7 mg/dL (7-17); Calcium 7.4 mg/dL (8.4-10.2); Carbon Dioxide 21 mmol/L (22-30); Chloride 109 mmol/L (98-107); Estimated CRCL calculation 135 ml/min; Estimated Glomerular Filt Rate > 60; Glucose 89 mg/dL (65-110); Potassium 3.7 mmol/L (3.4-5.0); Sodium 139 mmol/L (137-145)
--- NOTE | 2024-03-02 09:09 | WPDCN ---
Assessment and Plan Assessment and plan (1) Acute cholecystitis: Code(s): K81.0 - Acute cholecystitis Status: Acute Assessment and Plan: Patient has what appears to be acute cholecystitis 2nd cholelithiasis. Gallstones and pericholecystic fluid are noted on abdominal ultrasound. Gallbladder wall thickening is noted as well. She still has mild pain this morning. She is on IV antibiotics. Liver enzymes and white blood cell count is still normal this morning. I recommended proceeding with a robotic assisted laparoscopic cholecystectomy later today. Small risk of conversion open cholecystectomy was discussed as well. She has very large tacked to cross the epigastric region of the abdomen and I discussed having to make incisions within this tattoo. Risks, benefits, indications, and expected outcomes were discussed with the patient and/or family members. Specific risks to include bleeding and possible need for blood transfusion, infection, bile leak, injury to other organs, common bile duct injury, and conversion to open cholecystectomy has been discussed. I have answered all their questions and they agreed to proceed with surgery as outlined above. Will keep her NPO continue IV antibiotics. 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 No complaints of nausea or vomiting. She had had 1 prior episode of pain like this. She has known cholelithiasis but never had a diagnosis of acute cholecystitis. She is recently and is breast-feeding. She did not have any problems with the gallbladder during her . She wanted to be transferred to [facility] for further surgical management. I was contacted yesterday and agreed have the patient transferred to the hospitalist service. Somewhere along the way the patient did not get any information up being transferred and so she left AMA from the emergency room in [place]. She then presented here to [facility] Emergency Room last evening or another abdominal ultrasound was performed showing gallbladder wall thickening and a small amount of pericholecystic fluid and gallstones with a gallstone which may be in the neck of the gallbladder. CT scan done earlier today showed dilated gallbladder without phlegmon or acute inflammatory changes and [place]. White blood cell count is normal. Liver enzymes normal. She has not had any prior intra-abdominal surgery. This morning her pain is better. White blood cell count still normal. Liver enzymes are still normal. Review of Systems Review of Systems: The remainder of the review of systems to include constitutional, HEENT, cardiovascular, respiratory, GI, , integumentary, musculoskeletal, endocrine, immunologic, hematologic, psychiatric, and neurologic are all negative except for which is mentioned above in the HPI. [facility] Past Medical History Medical History Acoustic neuroma Gestational diabetes Family History Family History Other No pertinent family history Social History Social History Smoking status: Current every day smoker Tobacco type: e-cigarettes/vaping Second hand tobacco smoke exposure: Yes Alcohol intake: never Substance use: never Do You Feel Safe in your Home?: Yes Lack of Transportation: No Lack of Food: Never True Current Housing: I Have Housing Con
[2024-03-02] MEDS: SODIUM CHLORIDE 0.9% IV 1,000 ML 100 ML IV CONT (09:42)
[2024-03-02] MEDS: PANTOPRAZOLE SODIUM IV 40 MG VIAL IV PUSH (09:42)
[2024-03-02] MEDS: LACTATED RINGERS 1,000 ML 30 ML IV CONT ×2 (11:11→14:26)
[2024-03-02] MEDS: INDOCYANINE GREEN 25 MG VIAL WITH DILUENT 3.75 MG IV PUSH (12:00)
--- NOTE | 2024-03-02 12:26 | WPDANESEPPF ---
Anes - Initial Pre Proc Eval Procedure: Operation Date: 03/02/24 13:00 Proposed Procedures p Robotic Laparoscopic Cholecystectomy - Dusty Azevedo MD Date/Time: 03/02/24 12:26 Surgeon: Cary Diaz APRN Pre Op Diagnosis: Acute Cholecystitis Patient Data Age: 33 Gender: F Height: 1.6 m Weight: 105.9 kg Last Vital Signs Temp 98.0 F 03/02/24 12:01 Pulse 64 03/02/24 12:01 Resp 16 03/02/24 12:01 BP 121/69 03/02/24 12:01 Pulse Ox 99 03/02/24 12:01 O2 Del Method Room Air 03/02/24 12:01 Allergies Allergy/AdvReac Type Severity Reaction Status Date / Time No Known Allergies Allergy Verified 03/01/24 15:13 Home Medications Medication Instructions Recorded Confirmed Type vit no.95-ferrous 1 tablet PO DAILY 08/29/21 03/01/24 History fumarate 28 mg-folic acid 800 mcg tablet () Laboratory Tests 03/01/24 03/01/24 03/02/24 17:50 19:19 08:18 WBC 9.0 K/mm3 7.8 K/mm3 (4.5-10.0) (4.5-10.0) RBC 4.85 M/mm3 4.35 M/mm3 (4.2-5.4) (4.2-5.4) Hgb 14.3 g/dL 12.9 g/dL (12.0-15.0) (12.0-15.0) Hct 41.7 % 38.1 % (37.0-47.0) (37.0-47.0) MCV 86.0 fl 87.6 fl (80-100) (80-100) MCH 29.5 pg 29.7 pg (26-34) (26-34) MCHC 34.3 g/dl 33.9 g/dl (32-36) (32-36) RDW 13.0 % 12.9 % (11.5-14.5) (11.5-14.5) Plt Count 251 k/mm3 215 k/mm3 (150-375) (150-375) MPV 9.9 fl 9.8 fl (7.4-10.4) (7.4-10.4) Immature Gran % (Auto) 0.2 % 0.3 % (0-0.5) (0-0.5) Neut % (Auto) 65.6 % 63.5 % (45.5-73.1) (45.5-73.1) Lymph % (Auto) 25.6 % 25.4 % (18.3-44.2) (18.3-44.2) [place] % (Auto) 4.0 % 4.1 % (2.6-8.5) (2.6-8.5) Eos % (Auto) 4.4 % 6.4 H % (0-4.4) (0-4.4) Baso % (Auto) 0.2 % 0.3 % (0.2-1.2) (0.2-1.2) Lymph # (Auto) 2.31 K/mm3 1.98 K/mm3 (0.9-3.2) (0.9-3.2) [place] # (Auto) 0.4 K/mm3 0.3 K/mm3 (0.1-0.6) (0.1-0.6) Eos # (Auto) 0.4 H K/mm3 0.5 H K/mm3 (0-0.3) (0-0.3) Baso # (Auto) 0.0 K/mm3 0.0 K/mm3 (0.0-0.1) (0.0-0.1) Abs Immat Gran (auto) 0.02 K/mm3 0.02 K/mm3 (0.00-0.031) (0.00-0.031) Absolute Neuts (auto) 5.9 K/mm3 5.0 K/mm3 (1.3-6.7) (1.3-6.7) Absolute Nucleated RBC 0.000 K/mm3 0.000 K/mm3 (0.0-0.012) (0.0-0.012) Nucleated RBC % 0.0 % 0.0 % (0.0-0.2) (0.0-0.2) Sodium 140 mmol/L 139 mmol/L (137-145) (137-145) Potassium 3.8 mmol/L 3.7 mmol/L (3.4-5.0) (3.4-5.0) Chloride 108 H mmol/L 109 H mmol/L (98-107) (98-107) Carbon Dioxide 22 mmol/L 21 L mmol/L (22-30) (22-30) Anion Gap 10 mmol/L 9 mmol/L (4-12) (4-12) BUN 12 mg/dL 7 D mg/dL (7-17) (7-17) Creatinine 0.60 L mg/dL 0.60 L mg/dL (0.7-1.0) (0.7-1.0) Estim Creat Clear Calc 129 ml/min 135 ml/min Estimated GFR > 60 > 60 (59 - ) (59 - ) Glucose 83 mg/dL 89 mg/dL (65-110) (65-110) Lactic Acid 0.8 mmol/L (0.7-2.0) Calcium 8.2 L mg/dL 7.4 L mg/dL (8.4-10.2) (8.4-10.2) Total Bilirubin 0.6 mg/dL 0.7 mg/dL (0.2-1.3) (0.2-1.3) AST 35 U/L 21 U/L (14-36) (14-36) ALT 23 U/L 19 U/L (6-35) (6-35) Alkaline Phosphatase 86 U/L 74 U/L (38-126) (38-126) Total Protein 7.0 g/dL 6.0 L g/dL (6.3-8.2) (6.3-8.2) Albumin 4.2 g/dL 3.5 g/dL (3.5-5.1) (3.5-5.1) Lipase 54 U/L (23-300) Urine Color Yellow (Yellow) Urine Appearance Clear (Clear) Urine pH 6.0 (5.0-9.0) Ur Specific [place] 1.035 (1.001-1.035) Urine Protein Negative mg/dL (Negative) Urine Glucose (UA) Negative mg/dL (Negative) Urine Ketones Negative mg/dL (Negative) Ur Blood (Man) Negative (Negative) Urine Nitrate Negative (Negativ
--- NOTE | 2024-03-02 12:37 | WPDHPUPDATE1 ---
History and Physical Update Update Date/Time: 03/02/24 12:37 History and Physical has been reviewed, including an updated exam of the patient. There are NO changes in the patient's condition. Risks, benefits, and alternatives have been discussed and questions answered. Patient agrees to proceed with procedure.
[2024-03-02] MEDS: BUPivacaine HCL 0.5% 10 ML AMP 30 ML INFILTRATE (13:30)
[2024-03-02] MEDS: LIDO 1%/EPINEPHRINE 1:100,000 20 ML VIAL 30 ML INFILTRATE (13:31)
[2024-03-02] MEDS: KETOROLAC 15 MG/ML VIAL (*BKC) IV PUSH (14:10)
--- NOTE | 2024-03-02 14:40 | W.PM.PROC2 ---
Procedure Note - Detailed Date of Procedure 03/02/24 Pre-op Diagnosis Acute Cholecystitis secondary to cholelithiasis Post-op Diagnosis Same Procedure Performed Robotic assisted laparoscopic cholecystectomy. Surgeon Dusty Azevedo MD [facility] Anesthesia General Indications Patient is a 33-year-old female who is 9 weeks who presented to an outside emergency room complaining of with a long history of worsening right upper quadrant abdominal pain associated with 1 episode of nausea vomiting. She had known history of cholelithiasis. Abdominal ultrasound during this hospital admission show gallbladder wall thickening with a small amount of pericholecystic fluid and multiple gallstones consistent with acute cholecystitis. She presents now for an urgent robotic assisted laparoscopic cholecystectomy. Findings The gallbladder is mildly distended with some mild acute inflammatory adhesions of the omentum to the gallbladder wall. No gangrene or necrosis the gallbladder wall was seen. Multiple gallbladder stones were palpable in the gallbladder after it was removed. Description of Procedure After informed consent was obtained patient brought to the operating room she was placed supine position and general endotracheal anesthesia was administered. The abdomen was then prepped and draped usual sterile fashion. Time-out was then performed correctly identifying the patient as well as procedure to be performed. She was already on scheduled IV antibiotics. I then entered the abdomen left upper quadrant utilizing a 5mm Optiview port. Once inside the abdomen insufflated to adequate pneumoperitoneum of 15mmmm of mercury with CO2. There were no adhesions around the local area so that I placed a 8mm robotic trocar port in the periumbilical position. Looking to the portions of the abdomen gallbladder was distended and the gallbladder wall is mildly thickened with small amount of erythema. There were inflammatory adhesions of the omentum to the gallbladder wall. I then placed additional robotic trocar ports across the mid abdomen. The Kia robot was then brought To The Patient's Bedside And and the robotic arms were then attached the robotic ports. Robotic instruments were then advanced into the abdomen under direct visualization. I then scrubbed out the procedure sent down the robotic console to perform the dissection robotically. A ProGrasp was used to hold the gallbladder at the dome and the gallbladder was elevated over the right half liver towards the right shoulder. A 2nd robotic grasper was then used to hold the gallbladder at the infundibulum. Then holding the gallbladder lateral open the cholecystic triangle and then with robotic dissection strip down the visceral peritoneum off of the gallbladder identified the cystic duct. The patient had injection of ICG prior to surgery and so utilizing firefly I was able to quickly visualized the cystic duct and common bile duct with firefly. I then dissected out cystic duct come [place] and identified the cystic artery and dissected this structure out circumferentially as well. I then placed 2 clips proximally in cystic duct and 1 clip distally high on infundibular gallbladder. The cystic duct was then divided with the cautery on pure cut. Similar maneuver was used to ligate and divide the cystic artery. The gallbladder is resected off the liver electrocautery. The gallbladder was freed from the liver is placed into an Endo-Catch bag. The 5mm left upper quadrant trocar port was then switched out for a 10mm trocar port accommodated the Endo-Catch bag. The gallbladder fossa was irrigated sterile saline solution hemostasis was excellent. I then aspirated the blood clot and fluid from the right upper quadrant and the pelvis. I then had the de Kia robotic instruments removed from the abdomen and the robot undocked from the patient's bedside. I then scrubbed back in the procedure an
--- NOTE | 2024-03-02 15:08 | SUR.PHASEI ---
Simple mask removed at 1505
[2024-03-02] MEDS: fentaNYL CITRATE INJ (*CRX) 100 MCG/2 ML VIAL 25 MCG IV PUSH ×3 (15:12→15:31)
[2024-03-02] MEDS: HYDROcodone/acetaminophen (*CRX) 5-325 MG TABLET 1 TAB PO (17:04)
[2024-03-02] MEDS: oxyCODONE HCL (*CRX) 5 MG TAB IR PO (20:33)
[2024-03-03 05:05] LABS: Basophils Percent Auto 0.1 % (0.2-1.2); Eosinophils Absolute Auto 0.1 K/mm3 (0-0.3); Eosinophils Percent Auto 0.4 % (0-4.4); Hemoglobin 12.7 g/dL (12.0-15.0); Immature Granulocyte Absolute 0.05 K/mm3 (0.00-0.031); Immature Granulocyte Percent A 0.4 % (0-0.5); Lymphocytes Absolute Auto 1.73 K/mm3 (0.9-3.2); Lymphocytes Percent Auto 15.5 % (18.3-44.2); Mean Corpuscular HGB Conc 34.3 g/dl (32-36); Mean Corpuscular Hemoglobin 29.4 pg (26-34); Mean Corpuscular Volume 85.6 fl (80-100); Mean Platelet Volume 9.8 fl (7.4-10.4); Monocytes Absolute Auto 0.5 K/mm3 (0.1-0.6); Neutrophils Absolute Auto 8.9 K/mm3 (1.3-6.7); Neutrophils Percent Auto 79.6 % (45.5-73.1); Platelet Count Result 252 k/mm3 (150-375); Red Blood Count 4.32 M/mm3 (4.2-5.4); Red Cell Distribution Width 12.4 % (11.5-14.5); White Blood Count 11.2 K/mm3 (4.5-10.0)
[2024-03-03 05:20] LABS: Alanine Aminotransferase 23 U/L (6-35); Albumin Level 3.8 g/dL (3.5-5.1); Alkaline Phosphatase 86 U/L (38-126); Anion Gap 9 mmol/L (4-12); Aspartate Amino Transferase 23 U/L (14-36); Bilirubin,Total 0.5 mg/dL (0.2-1.3); Blood Urea Nitrogen 9 mg/dL (7-17); Calcium 8.5 mg/dL (8.4-10.2); Carbon Dioxide 21 mmol/L (22-30); Chloride 107 mmol/L (98-107); Estimated CRCL calculation 117 ml/min; Estimated Glomerular Filt Rate > 60; Glucose 130 mg/dL (65-110); Magnesium 2.1 mg/dL (1.6-2.3); Sodium 137 mmol/L (137-145)
[2024-03-03 05:31] VITALS: BP 135/62; PULSE 68; RESP 20; TEMP 36.6; O2SAT 98
[2024-03-03] MEDS: HYDROcodone/acetaminophen (*CRX) 5-325 MG TABLET 1 TAB PO (05:33)
[2024-03-03] MEDS: PANTOPRAZOLE 40 MG TABLET PO (09:12)
[2024-03-03] MEDS: MULTIVIT/MIN/PREN/FOL AC/IRON TABLET 1 TAB PO (09:12)
[2024-03-03] MEDS: MORPHINE SULFATE (*CRX) 4 MG/ML INJ IV PUSH (09:17)
--- NOTE | 2024-03-03 11:55 | WPDPN ---
Progress Note: A&P Assessment and Plan (1) Acute cholecystitis: Code(s): K81.0 - Acute cholecystitis Status: Acute Assessment and Plan: Postop day 1 after robotic assisted laparoscopic cholecystectomy due to acute cholecystitis and gallstones. Her pain is not optimally controlled today on oral pain medications. Will see how the day continues and try to relying mostly on the oral pain medications. If she can tolerate just oral pain medications that she can discharge home later today. Subjective Date/time seen: 03/03/24 11:55 Interval history: Complaining of incisional pain in the left upper quadrant trocar port sites. She did take a dose of morphine this morning because of the pain. To talk oral narcotics prior to the IV pain medications. She is tolerating full liquids and then advance to solid diet. No nausea or vomiting. No fever. Exam GI: Other: Mild ecchymosis around the periumbilical area and left upper quadrant port site. No hematoma. No drainage or redness. Expected mild tenderness to palpation around the port sites. Objective Data Vital Signs Vital Signs: Vital Signs - 24 hr 03/02/24 12:01 03/02/24 14:26 03/02/24 14:40 Temperature 36.7 C 36.8 C Pulse Rate 64 81 78 Respiratory Rate 16 10 L 22 H Blood Pressure 121/69 118/55 L 124/64 Pulse Oximetry 99 97 99 Oxygen Delivery Room Air Simple Face Mask Simple Face Mask Oxygen Flow Rate 8 03/02/24 14:45 03/02/24 14:55 03/02/24 15:10 Temperature Pulse Rate 76 79 Respiratory Rate 22 H 22 H Blood Pressure 130/69 138/79 Pulse Oximetry 99 100 95 Oxygen Delivery Simple Face Mask Simple Face Mask Room Air Oxygen Flow Rate 8 8 03/02/24 15:25 03/02/24 15:40 03/02/24 15:55 Temperature Pulse Rate 78 75 75 Respiratory Rate 20 18 20 Blood Pressure 133/79 121/72 130/84 Pulse Oximetry 93 94 93 Oxygen Delivery Room Air Room Air Room Air Oxygen Flow Rate 03/02/24 16:10 03/02/24 16:22 03/02/24 20:50 Temperature 36.9 C 36.5 C Pulse Rate 80 79 80 Respiratory Rate 17 14 20 Blood Pressure 129/70 129/70 142/75 H Pulse Oximetry 95 96 96 Oxygen Delivery Room Air Room Air Oxygen Flow Rate 03/02/24 20:00 03/03/24 05:31 Temperature 36.6 C Pulse Rate 68 Respiratory Rate 20 Blood Pressure 135/62 Pulse Oximetry 98 Oxygen Delivery Room Air Oxygen Flow Rate Intake/Output Intake/Output: Intake & Output 02/29/24 03/01/24 03/02/24 03/03/24 23:59 23:59 23:59 23:59 Intake Total 1100 1680 630 Balance 1100 1680 630 Meds/Results Medications: Active Medications Generic Name Dose Route Start Last Admin Trade Name Freq PRN Reason Stop Dose Admin Acetaminophen 650 mg 03/02/24 07:43 Acetaminophen 325 Mg Tablet PO Q4H PRN As Needed for Fever or Pain Hydrocodone Bitart/Acetaminophen 1 tab 03/02/24 16:24 03/03/24 05:33 Hydrocodone/Acetaminophen (*Crx) 5-325 Mg Tablet PO 1 tab Q4H PRN Administration Pain Rated 4-6 Morphine Sulfate 4 mg 03/02/24 07:41 03/03/24 09:17 Morphine Sulfate (*Crx) 4 Mg/Ml Inj IV PUSH 4 mg Q2H PRN Administration Pain Rated 4-6 Ondansetron HCl 4 mg 03/01/24 19:44 Ondansetron Inj 4 Mg/2 Ml Vial IV PUSH Q4H PRN Nausea Ondansetron HCl 4 mg 03/02/24 12:30 Ondansetron Inj 4 Mg/2 Ml Vial IV PUSH ONCE PRN Nausea Oxycodone HCl 5 mg 03/02/24 16:24 03/02/24 20:33 Oxycodone Hcl (*Crx) 5 Mg Tab Ir PO 5 mg Q6H PRN Administration Pain Rated 7-10 Pantoprazole Sodium 40 mg 03/03/24 09:00 03/03/24 09:12 Pantoprazole 40 Mg Tablet PO 40 mg QAM LALA Administration Vit/Calcium/Iron/Folic Ac 1 tab 03/03/24 09:00 03/03/24 09:12 Multivit/Min/Pren/Fol Ac/Iron Tablet PO 1 tab DAILY LALA Administration Radiology Results: ITS Impressions Abdomen Ultrasound 03/01/24 16:16 IMPRESSION: Acute cholecystitis. Labs Labs: Laboratory Results - last 2
--- NOTE | 2024-03-03 12:02 | PC.NURSE ---
Patient resting in bed, pumping. Complaints of L sided incisional pain. PO pain medications are not working for her. She would like to try IV pain medication even though she know she might be going home today. She will discuss pain management with MD when they arrive.
[2024-03-03] MEDS: ONDANSETRON INJ 4 MG/2 ML VIAL IV PUSH (14:13)
[2024-03-03 14:19] VITALS: BP 126/82; PULSE 62; RESP 16; TEMP 36.9; O2SAT 100
[2024-03-03] MEDS: KETOROLAC 30 MG/ML VIAL (*BKC) IV PUSH (14:22)
--- NOTE | 2024-03-03 14:44 | WPDANESPN ---
Anes - Prog Note Post-Op Date/Time: 03/03/24 14:44 Cardiovascular status: normal Respiratory status: normal Airway patency: baseline Mental status: baseline Post-Op hydration status: normal Vital Signs: Last Vital Signs Temp 36.9 C 03/03/24 14:19 Pulse 62 03/03/24 14:19 Resp 16 03/03/24 14:19 BP 126/82 03/03/24 14:19 Pulse Ox 100 03/03/24 14:19 O2 Del Method Room Air 03/02/24 20:00 O2 Flow Rate 8 03/02/24 14:55 Pain Score (VAS): 09/27 I/O: Intake & Output 03/02/24 03/03/24 03/03/24 23:59 07:59 15:59 Intake Total 580 390 360 Balance 580 390 360 Laboratory Tests 03/03/24 04:54 03/03/24 04:54 03/03/24 04:54 WBC 11.2 H RBC 4.32 Hgb 12.7 Hct 37.0 MCV 85.6 MCH 29.4 MCHC 34.3 RDW 12.4 Plt Count 252 MPV 9.8 Immature Gran % (Auto) 0.4 Neut % (Auto) 79.6 H Lymph % (Auto) 15.5 L [place] % (Auto) 4.0 Eos % (Auto) 0.4 Baso % (Auto) 0.1 L Lymph # (Auto) 1.73 [place] # (Auto) 0.5 Eos # (Auto) 0.1 Baso # (Auto) 0.0 Abs Immat Gran (auto) 0.05 H Absolute Neuts (auto) 8.9 H Absolute Nucleated RBC 0.000 Nucleated RBC % 0.0 Sodium 137 Potassium 4.0 Chloride 107 Carbon Dioxide 21 L Anion Gap 9 BUN 9 Creatinine 0.70 Estim Creat Clear Calc 117 Estimated GFR > 60 Glucose 130 H Calcium 8.5 Magnesium 2.1 Total Bilirubin 0.5 AST 23 ALT 23 Alkaline Phosphatase 86 Total Protein 7.0 Albumin 3.8 Microbiology 03/01/24 17:50 Urine Clean Catch Urine Culture - Final 03/01/24 19:19 Blood Blood Culture - Preliminary 03/01/24 19:12 Blood Blood Culture - Preliminary Post-procedural complaints: none Patient Feedback: Patient satisfied with anesthetic care.
--- NOTE | 2024-03-03 16:53 | PM.IMPN ---
Progress Note: A&P Assessment and Plan (1) Acute cholecystitis: Code(s): K81.0 - Acute cholecystitis Status: Acute Assessment and Plan: 03/03/24: Patient currently postop day 1 from a lap cholecystectomy She reports 6/10 abdominal pain still today, no nausea or vomiting. I increased pain meds to 7.5/325 [place] for better pain relief Currently tolerating advancement in diet Encourage ambulation General surgery following (2) (normal spontaneous vaginal delivery): Code(s): O80 - Encounter for full-term uncomplicated delivery Status: Acute Assessment and Plan: 9 weeks after uncomplicated vaginal delivery SCDs for DVT prophylaxis until after surgery Time Spent With Patient Time with patient: 15 - 25 minutes Subjective Date/time seen: 03/03/24 16:54 Interval history: Patient still reporting 6/10 pain in her abdomen which is unrelieved with oral pain medication regimen. She denies any nausea, vomiting, diarrhea, chest pain, shortness a breath. She denies passing gas or having bowel movement yet. Review of Systems Review of Systems: All systems reviewed & are unremarkable except as noted in HPI and below Constitutional: Constitutional: Reports as per HPI and Reports no additional constitutional complaints Eyes: Eyes: Reports as per HPI and Reports no additional eye complaints ENT: Reports system reviewed and no additional complaints, except as documented and Reports as per HPI Cardiovascular: Cardiovascular: Reports as per HPI and Reports no additional cardiovascular complaints Respiratory: Respiratory: Reports as per HPI and Reports no additional respiratory complaints Gastrointestinal: Gastrointestinal: Reports as per HPI and Reports no additional gastrointestinal complaints Genitourinary: Genitourinary: Reports no additional female genitourinary complaints and Reports as per HPI Musculoskeletal: Musculoskeletal: Reports no additional musculoskeletal complaints and Reports as per HPI Integumentary/Breasts: Skin/Breast: Reports system reviewed and no additional complaints, except as docu and Reports as per HPI Neurologic: Reports system reviewed and no additional complaints, except as documented and Reports as per HPI Psychiatric: Psychiatric: Reports no additional psychiatric complaints and Reports as per HPI Exam Narrative: General: In no acute distress, well nourished Head: atraumatic, no encephalopathy Eyes: EOMI, PERRLA, sclera clear ENT: moist mucous membranes, nasal passages clear Neck: supple, no JVD, no adenopathy, trachea midline Cardiac: Normal S1 and S2. RRR, No murmur, gallops or friction rubs, peripheral pulses intact. Respiratory: Lungs clear to auscultation, no adventitious lung sounds, currently on room air Gastrointestinal: soft, slightly distended, non-tender, hypo active bowel sounds. : voiding without difficulty. Extremities: moves all extremities well, no edema, good ROM, strength 5/5 Skin: Lap sites with surgical glue to abdomen Neuro: Alert and oriented x4, cranial nerves intact, no neuro deficits. Psych: normal mood, normal affect, interactive Objective Data Vital Signs Vital Signs: Vital Signs - 24 hr 03/02/24 20:50 03/02/24 20:00 03/03/24 05:31 Temperature 97.7 F 97.8 F Pulse Rate 80 68 Respiratory Rate 20 20 Blood Pressure 142/75 H 135/62 Pulse Oximetry 96 98 Oxygen Delivery Room Air 03/03/24 14:19 Temperature 98.4 F Pulse Rate 62 Respiratory Rate 16 Blood Pressure 126/82 Pulse Oximetry 100 Oxygen Delivery Intake/Output Intake/Output: Intake & Output 02/29/24 03/01/24 03/02/24 03/03/24 23:59 23:59 23:59 23:59 Intake Total 1100 1680 750 Balance 1100 1680 750 Meds/Results Medications: Active Medications Generic Name Dose Route Start Last Admin Trade Name Freq PRN Reason Stop Dose Admin Acetaminophen 650 mg 03/02/24 07:43 Acetaminophen 325 Mg Tablet PO Q4H [place]
--- NOTE | 2024-03-03 18:26 | PM.DS ---
DS: Admitting Diagnosis Discharge Date 03/03/24 Admitting Diagnosis Psoriasis of scalp Acute cholecystitis DS: Discharge Diagnosis Discharge Diagnosis (1) Acute cholecystitis: Code(s): K81.0 - Acute cholecystitis Status: Acute (2) (normal spontaneous vaginal delivery): Code(s): O80 - Encounter for full-term uncomplicated delivery Status: Acute DS: Summary Hospital Course Reason for hospitalization: Acute cholecystitis Psoriasis of scalp Hospital Course: This is a 33 year old female who is 9 weeks who was found to have acute cholecystitis on CT scan. She was taken to the OR on 03/02/2024 for lap cholecystectomy. She is doing well today. Her pain is under control. She is stable for discharge at this time. Final diagnosis: Acute cholecystitis Status at Discharge Cognitive/behavioral status at discharge: Alert and oriented x4 Functional status at discharge: independent ambulation Overall status at discharge: patient is progressing back to baseline Time Spent with Patient Time attestation: Total time spent providing and/or coordinating discharge services: Time spent: Greater than 30 minutes Exam Narrative: General: In no acute distress, well nourished Head: atraumatic, no encephalopathy Eyes: EOMI, PERRLA, sclera clear ENT: moist mucous membranes, nasal passages clear Neck: supple, no JVD, no adenopathy, trachea midline Cardiac: Normal S1 and S2. RRR, No murmur, gallops or friction rubs, peripheral pulses intact. Respiratory: Lungs clear to auscultation, no adventitious lung sounds, currently on room air Gastrointestinal: soft, slightly distended, non-tender, hypo active bowel sounds. : voiding without difficulty. Extremities: moves all extremities well, no edema, good ROM, strength 5/5 Skin: Lap sites with surgical glue to abdomen Neuro: Alert and oriented x4, cranial nerves intact, no neuro deficits. Psych: normal mood, normal affect, interactive DS: Data Data Completed and Pending Completed studies during hospitalization: ABdomen/pelvis CT Abdomen ultrasound Pending studies at discharge: Pending at discharge 03/02/24 14:02 Surgical [PTH] Routine Labs on day of discharge: Labs from last 24 hours 03/03/24 04:54 WBC 11.2 H RBC 4.32 Hgb 12.7 Hct 37.0 MCV 85.6 MCH 29.4 MCHC 34.3 RDW 12.4 Plt Count 252 MPV 9.8 Immature Gran % (Auto) 0.4 Neut % (Auto) 79.6 H Lymph % (Auto) 15.5 L Sutter % (Auto) 4.0 Eos % (Auto) 0.4 Baso % (Auto) 0.1 L Lymph # (Auto) 1.73 Sutter # (Auto) 0.5 Eos # (Auto) 0.1 Baso # (Auto) 0.0 Abs Immat Gran (auto) 0.05 H Absolute Neuts (auto) 8.9 H Absolute Nucleated RBC 0.000 Nucleated RBC % 0.0 Sodium 137 Potassium 4.0 Chloride 107 Carbon Dioxide 21 L Anion Gap 9 BUN 9 Creatinine 0.70 Estim Creat Clear Calc 117 Estimated GFR > 60 Glucose 130 H Calcium 8.5 Magnesium 2.1 Total Bilirubin 0.5 AST 23 ALT 23 Alkaline Phosphatase 86 Total Protein 7.0 Albumin 3.8 Preliminary micro results at discharge 03/01/24 19:19 Blood Culture - Preliminary Blood 03/01/24 19:12 Blood Culture - Preliminary Blood Procedures/Treatments: Laparoscopic cholecystectomy Discharge Plan Discharge Attending physician on discharge: Annie Kaur Consulting providers: Chris Walsh; Dusty Azevedo; Palma Fernández; Arcenio Castelan; Joaquin Parra; Kayce Davis Discharging Clinician: Palma Fernández Anticipated Discharge Date/Time: 03/03/24 18:23 Patient Disposition: Home, Self-Care Activity: may shower Diet: regular Discharge Instructions: May discharge home when stable. Follow up with Dr. Azevedo in the office in 2 weeks. Patient to call [phone] for an appointment. May shower in 24hours but do not soak incisions under water for 2 weeks. No lifting more than 10 to 15 lb for 2 weeks. May advance diet as tolerated. No driving for at least 3 d
== END 2024-03-03 19:00 | disposition home or self-care (01) ==
LOC: ANHED 19:11 → ANH2MED 03-02 07:14 → ANH3MEDSUR 03-04 07:16
PROVIDERS: Physician Assistant; Surgery; Admitting Provider Internal Medicine; Emergency Provider Physician Assistant; Visit Provider Nurse Practitioner Acute Care
PROC: 0FT44ZZ Resection of Gallbladder, Percutaneous Endoscopic Approach (ICD-10-PCS; CPT 47562; principal; 2024-03-02 13:00)
DX: K80.12 Calculus of gallbladder with acute and chronic cholecystitis without obstruction (principal); L40.9 Psoriasis, unspecified; F17.290 Nicotine dependence, other tobacco product, uncomplicated
CPT/HCPCS: 47562; S2900; 36415; 76705; 80053; 81001; 81025; 83605; 83690; 83735; 85025; 86850; 86900; 86901; 87040; 87086; 88304; 96361; 96365; 96375; 99285; A9270; G0378; J1170; J1885; J2250; J2270; J2405; J2470; J2543; J3010; J7030; J7120

== ENCOUNTER 2024-08-04 10:52 | Emergency (ER) | payer OTHER, MEDICAID, SELFPAY ==
--- NOTE | ~2024-08-04 | XR_ITS ---
XR chest 2V Ordering provider: CASTILLO Dowd History: 34 years Female with . cough x2 weeks, sob . Comparison: None. FINDINGS: MEDIASTINUM: The cardiac silhouette is not enlarged. LUNGS: No infiltrates, effusions or pneumothorax. OTHER: No free air under the diaphragm. IMPRESSION: No acute cardiopulmonary pathology. Reviewed, dictated and finalized at location A. [facility] DIRECTOR OF NURSING
[2024-08-04 11:17] VITALS: BP 131/78; PULSE 80; RESP 16; TEMP 36.2; O2SAT 99
--- NOTE | 2024-08-04 11:35 | ED.URI ---
HPI - URI/Sore Throat General Chief Complaint: Upper Respiratory Infection Stated Complaint: Cough Time Seen by Provider: 08/04/24 11:15 Source: patient and RN notes reviewed Mode of arrival: ambulatory Limitations: no limitations History of Present Illness HPI Narrative: Patient presents today with an almost 2 week history of productive cough, nasal congestion, headache, shortness of breath and fatigue with exertion. Denies fever. She has tried some Tylenol symptoms. Denies history of asthma. Patient vapes. 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 Related Data Allergies Allergy/AdvReac Type Severity Reaction Status Date / Time No Known Allergies Allergy Verified 08/04/24 11:15 Review of Systems Review of Systems: CONSTITUTIONAL: Denies body aches, fever, chills, or sweats.+ fatigue EYES: Denies visual changes, redness, or discharge. ENT: Denies rhinorrhea, sore throat, or otalgia.+ congestion CARDIOVASCULAR: Denies chest pain, palpitations, or edema. RESPIRATORY: + cough, shortness of breath. GASTROINTESTINAL: Denies abdominal pain, nausea, vomiting, or diarrhea. GENITOURINARY: Denies dysuria or hematuria. SKIN: Denies rash, itching, or wounds. MUSCULOSKELETAL: Denies back pain, joint pain, or myalgia. NEUROLOGIC: Denies numbness, tingling, or weakness.+ headache PSYCH: Denies depression or anxiety. [facility] Past Medical History Medical History Acoustic neuroma Gestational diabetes Family History Family History Other No pertinent family history Social History Social History Smoking status: Current every day smoker Tobacco type: e-cigarettes/vaping Second hand tobacco smoke exposure: Yes Alcohol intake: never Substance use: never Do You Feel Safe in your Home?: Yes Lack of Transportation: No Lack of Food: Never True Current Housing: I Have Housing Concerned About Future Housing: No Difficulty Paying Gas/Electric Bills: No Difficulty Paying for Meds: No Currently Unemployed: No Education: Bachelor's Degree Difficulty w/ Childcare or Family Care: No Spiritual care concerns: No Comments At time of signature, I have reviewed and agree with nursing past medical, surgical, social and family history unless otherwise noted. Please see nursing chart for further information. There is no relevant family history pertinent to the presenting complaint Exam Narrative: GENERAL: Mildly ill-appearing, well-nourished, and in no acute distress. HEAD: Normocephalic, atraumatic. EYES: EOMI. No redness or drainage. Conjunctivae normal. ENT: Mucous membranes pink and moist. Nares congested. No rhinorrhea. TMs normal bilaterally. Throat normal. Uvula midline. NECK: Normal AROM. Supple. No lymphadenopathy. CHEST: No respiratory distress. Slight crackle in the left lower lobe, otherwise clear. HEART: Regular rate and rhythm. No murmur appreciated. EXTREMITIES: Normal range of motion. No edema. SKIN: Warm, dry, no rash. Capillary refill normal. Normal skin turgor. NEURO: No focal deficits. Alert and oriented x3. Gait steady. PSYCH: Normal affect. No signs of depression or anxiety. Course Course Level of Care: Express Care Visit Vital Signs Vital signs: Vital Signs Temperature 97.2 F L 08/04/24 11:17 Pulse Rate 80 08/04/24 11:17 Respiratory Rate 16 08/04/24 11:17 Blood Pressure 131/78 08/04/24 11:17 Pulse Oximetry 99 08/04/24 11:17 Temperature 97.2 F L 08/04/24 11:17 Pulse Rate 80 08/04/24 11:17 Respiratory Rate 16 08/04/24 11:17 Blood Pressure 131/78 08/04/24 11:17 Pulse Oximetry 99 08/04/24 11:17 Oxygen Delivery Room Air 08/04/24 11:20 Reviewed MDM - URI/Sore Throat MDM Narrative Medical decision making narrative: Chest x-ray negative for pneumonia. Symptoms likely viral in etiology. Discussed [id number] medication use and duration of illness. Prescription for prednisone, Tessalon Perles, and albuterol sent to pharmacy for symptoms. Anticipatory guidance given. Differential Diagnosis Differential diagnosis: Likely upper respiratory infection, sinusitis, viral infection, bronchitis and other (Pneumonia) Imaging Data Radiologist's impression: ITS Impressions Chest X-Ray 08/04/24 11:42 IMPRESSION: No acute cardiopulmonary pathology. Critical Care Time Critical Care Time Critical Care Time: No Discharge Plan Discharge Clinical Impression: Bronchitis Upper respiratory infection Qualifiers: URI type: unspecified URI Qualified Code(s): J06.9 - Acute upper respiratory infection, unspecified Patient Disposition: Home, Self-Care Condition: Stable Instructions: Upper Respiratory Infection (DC), Acute Bronchitis (ED) Additional Instructions: Your chest x-ray is negative for pneumonia. Please take prescribed medications as directed. Rest and stay hydrated. Mucinex is a good choice for during the day. Take the Tessalon Perles for cough at night. Humidifier can be helpful at night as well. Follow-up with your PCP next week if symptoms are not improving. Go to the ER if symptoms worsen. Your blood pressure was elevated above 120/80 today at Urgent Care. This puts you above the threshold for follow up. Please schedule a followup visit with your personal physician as soon as possible, for further evaluation and treatment. Even blood pressure exceeding 120/80 may indicate pre-hypertension. Patient Language: Icelandic Prescriptions: New benzonatate 200 mg capsule 200 mg PO TID PRN (Reason: cough) Qty: 20 0RF albuterol sulfate 90 mcg/actuation HFA aerosol inhaler 2 inh inhalation Q4-6H PRN (Reason: shortness of breath or wheezing) Qty: 8.5 0RF (DME) BreatheRite MDI Spacer Spacer See Rx Instructions .ROUTE .MEDSUPPLY Qty: 1 0RF Rx Instructions: As directed prednisone 50 mg tablet 50 mg PO DAILY 5 Days Qty: 5 0RF Follow-up/Referrals: PHYSICIAN,MARKER MACHINE ATTENDANT [Primary Care Provider] - Stand Alone Forms: Work/School Release IP Time of Disposition: 11:56
== END 2024-08-04 11:59 | disposition home or self-care (01) ==
PROVIDERS: Emergency Provider Nurse Practitioner
DX: J40 Bronchitis, not specified as acute or chronic (principal); J06.9 Acute upper respiratory infection, unspecified; F17.290 Nicotine dependence, other tobacco product, uncomplicated
CPT/HCPCS: 71046; 99213; G0463

== ENCOUNTER 2024-11-12 10:30 | Emergency (ER) | payer OTHER, SELFPAY ==
--- NOTE | 2024-11-12 10:41 | ED_ITS ---
HPI - Wound/Laceration General Chief Complaint: Wound/Laceration Stated Complaint: L INDEX FINGER LACERATION Time Seen by Provider: 11/12/24 10:41 Source: patient Mode of arrival: ambulatory Limitations: no limitations History of Present Illness HPI narrative: 34 yo F presents with c/o laceration to L index finger. Pt cut herself with breadknife prior to arrival. bleeding controlled. Tetanus UTD. CMS intact. All systems reviewed and negative except as noted above. Related Data Allergies Allergy/AdvReac Type Severity Reaction Status Date / Time No Known Allergies Allergy Verified 11/12/24 10:40 Review of Systems Review of Systems: CONSTITUTIONAL: Denies fever, chills, or sweats. EYES: Denies visual changes, redness, or discharge. ENT: Denies rhinorrhea, congestion, sore throat, or otalgia. CARDIOVASCULAR: Denies chest pain, palpitations, or edema. RESPIRATORY: Denies cough or dyspnea. GASTROINTESTINAL: Denies abdominal pain, nausea, vomiting, or diarrhea. GENITOURINARY: Denies dysuria or hematuria. SKIN: Denies rash or itching. Reports laceration to L index finger MUSCULOSKELETAL: Denies back pain, joint pain, or myalgia. NEUROLOGIC: Denies headache, numbness, or weakness. PSYCHIATRIC: Denies anxiety or depression. All other systems reviewed are negative, except as documented in HPI. [facility] [place] Past Medical History Medical History Acoustic neuroma Gestational diabetes Family History Family History Other No pertinent family history Social History Social History Smoking status: Current every day smoker Tobacco type: e-cigarettes/vaping Second hand tobacco smoke exposure: Yes Alcohol intake: never Substance use: never Do You Feel Safe in your Home?: Yes Lack of Transportation: No Lack of Food: Never True Current Housing: I Have Housing Concerned About Future Housing: No Difficulty Paying Gas/Electric Bills: No Difficulty Paying for Meds: No Currently Unemployed: No Education: Bachelor's Degree Difficulty w/ Childcare or Family Care: No Spiritual care concerns: No Comments At time of signature, agree with nursing past medical, surgical, social and family history. There is no relevant family history pertinent to the presenting complaint. Exam Narrative: GENERAL: This is a well-nourished, well-developed patient, in no apparent distress. HEAD: normocephalic, atraumatic. EYES: PERRL. Sclera clear/white. Vision is grossly intact. EARS: External ears normal NOSE: External nose normal NECK: Neck supple, non-tender without lymphadenopathy, masses or thyromegaly. CARDIOVASCULAR: Regular rate and rhythm without murmurs, gallops, or rubs. RESPIRATORY: Clear to auscultation. Breath sounds equal bilaterally. No wheezes, rales, or rhonchi. SKIN: warm, Dry, no suspicious lesions or rash, good texture and turgor. superficial laceration to dorsal aspect L index finger, flap type wound NEURO: awake, alert, and oriented to person, place and time. There were no obvious focal neurologic abnormalities. EXTREMITIES: No joint tenderness, effusion, or edema noted. Course Course Level of Care: Express Care Visit Vital Signs Vital signs: Reviewed MDM - Wound/Laceration MDM Narrative Medical decision making narrative: Patient has a superficial flap-type laceration to left index finger. Does not require suture repair. Antibiotic ointment and Band-Aid placed. CMS intact. Please be advised this is a medical document. It is intended for [id number] communication. It is written in medical language and may contain unfamiliar abbr eviations or verbiage. Medical documents are intended to carry relevant information, facts as evident, and the clinical opinion of the practitioner at the time of the encounter. This report may have been done utilizing a voice recognition system. Attempts have been made to correct errors. However, there may be uncorrected grammatical, spelling, and recognition errors present. The file time of this note does not necessarily represent the time of service. Discharge Plan Discharge Clinical Impression: Laceration of left index finger Qualifiers: Encounter type: initial encounter Damage to nail status: without damage Foreign body presence: unspecified Qualified Code(s): S61.211A - Laceration without foreign body of left index finger without damage to nail, initial encounter Patient Disposition: Home, Self-Care Condition: Stable Instructions: Finger Laceration (ED) Additional Instructions: Keep wound clean and dry. Keep open to air when possible. Patient Language: Albanian Prescriptions: No Action benzonatate 200 mg capsule 200 mg PO TID PRN (Reason: cough) Qty: 20 0RF albuterol sulfate 90 mcg/actuation HFA aerosol inhaler 2 inh inhalation Q4-6H PRN (Reason: shortness of breath or wheezing) Qty: 8.5 0RF (DME) BreatheRite MDI Spacer Spacer See Rx Instructions .ROUTE .MEDSUPPLY Qty: 1 0RF Rx Instructions: As directed prednisone 50 mg tablet 50 mg PO DAILY 5 Days Qty: 5 0RF Follow-up/Referrals: Elisha,MD Hermelinda [Primary Care Provider] - Stand Alone Forms: Work/School Release IP Time of Disposition: 10:47
[2024-11-12 10:42] VITALS: BP 109/57; PULSE 85; RESP 16; TEMP 36.8; O2SAT 99
== END 2024-11-12 11:03 | disposition home or self-care (01) ==
PROVIDERS: Emergency Provider Nurse Practitioner Family; PCP Internal Medicine
DX: S61.211A Laceration without foreign body of left index finger without damage to nail, initial encounter (principal); W26.0XXA Contact with knife, initial encounter; F17.290 Nicotine dependence, other tobacco product, uncomplicated; D33.3 Benign neoplasm of cranial nerves
CPT/HCPCS: 99212; G0463